=== PATIENT | female | born 1945 | race Caucasian/White ===

== ENCOUNTER 2017-01-17 23:28 | Inpatient (IN) ==
[2017-01-18] MEDS ORDERED: PANTOPRAZOLE INJ 80 MG in SODIUM CHLORIDE 0.9% 100 ML IV STA (01:12)
[2017-01-18] MEDS ORDERED: SODIUM CHLORIDE 0.9% 1,000 ML IV STA (01:12)
[2017-01-18] MEDS ORDERED: ONDANSETRON 4 MG/2 ML VIAL IV STA (01:12)
[2017-01-18] MEDS ORDERED: HYDROmorphone 2 MG/1 ML VIAL IV STA (01:13)
[2017-01-18 01:22] LABS: Basophils # 0.1 10*3/uL (0.0-0.2); Basophils % 0.6 % (0.0-0.8); Eosinophils # 0.1 10*3/uL (0.0-0.87); Eosinophils % 0.9 % (0.00-10.9); Hematocrit 32.6 VOL% (35.7-47.0); Hemoglobin 9.9 GM/DL (12.0-16.0); Immature Granulocytes % 0.4 %; Immature Granulocytes Absolute 0.05 #; Lymphocytes # 2.7 10*3/uL (1.4-4.0); Lymphocytes % 22.8 % (21.3-54.2); Mean Corpuscular HGB Conc 30.4 GM/DL (32-36); Mean Corpuscular Hemoglobin 23 PG (27-34); Mean Corpuscular Volume 75.5 FL (87-102); Mean Platelet Volume 9.3 FL (9.6-12.0); Monocytes # 0.7 10*3/uL (0.11-0.8); Monocytes % 5.8 % (1.7-12.7); Neutrophils # 8.1 10*3/uL (1.4-7.4); Neutrophils % 69.5 % (38.7-73.9); Platelet Count 497 T/CUMM (130-400); Red Blood Count 4.32 MC/CUMM (3.8-5.5); Red Cell Distribution Width 16.4 % (9.3-17.3); White Blood Count 11.6 T/CUMM (4-12)
[2017-01-18] MEDS ORDERED: HYDROmorphone 2 MG/1 ML VIAL ONE (01:25)
[2017-01-18] MEDS ORDERED: PANTOPRAZOLE 40 MG VIAL IV ONE (01:25)
[2017-01-18] MEDS ORDERED: ONDANSETRON 4 MG/2 ML VIAL ONE (01:25)
[2017-01-18 01:27] LABS: PT Patient Result 11.1 SECS; Partial Thromboplastin Time 26.7 SECS (0-40)
[2017-01-18 01:51] LABS: Alanine Aminotransferase 18 U/L (13-56); Alkaline Phosphatase 130 U/L (45-117); Aspartate Amino Transferase 22 U/L (0-37); Calcium 8.7 MG/DL (8.5-10.1)
[2017-01-18 01:52] LABS: Albumin 4.3 G/DL (3.4-5.0); Blood Urea Nitrogen 23 MG/DL (7-18); Glucose 96 MG/DL (74-106); Magnesium 2.6 MG/DL (1.8-2.4); Osmolality,Calculated 282.4 MOS/KG (273-304); Potassium 3.4 MMOL/L (3.5-5.1); Sodium 140 MMOL/L (136-145); Total Protein 6.8 G/DL (6.4-8.3); Troponin I Only < 0.015 NG/ML (0.00-0.045)
[2017-01-18] MEDS ORDERED: PANTOPRAZOLE INJ 200 MG in SODIUM CHLORIDE 0.9% 250 ML IV SCH (05:00)
--- NOTE | 2017-01-18 05:30 | Emergency Department Note ---
I, Carmen Gordon, am scribing for, and in the presence of, Aubree Billingsley DO 00:55. IJose Cruz Catherine, DO, personally performed the services described in this documentation, ascribed by Carmen Gordon in my presence, and it is both accurate and complete . Arrival - Arrival Chief Complaint: GI Bleed/Rectal Stated Complaint: bleeding from rectum with stomach pain ED Nursing Triage Note: PT STATES THAT SHE HAD A BOWEL MOVEMENT TONIGHT AND SHE NOTICED BRIGHT RED BLOOD WHEN SHE WIPED. STATES THAT SHE WAS SEEN FRIDAY BY HER PCP AND HAD BLOOD WORK BUT THAT SHE HAS NOT BEEN TOLD ANYTHING. STATES THAT SHE DID HAVE THIS PROBLEM FRIDAY. PT HAS AN APPOINTMENT IN FEBRUARY WITH DR. HERCULES HOWEVER, PT STATES THAT SHE BELIEVES IT IS TOO BAD TO WAIT UNTIL THEN. STATES THAT SHE IS HAVING LOWER ABD PAIN. Mode of Arrival: Ambulatory Limitations: No Limitations Source: Patient - History of Present Illness HPI Narrative: Pt is a 71 y/o female who came to ED with c/o abdomen pain with excessive blood in stool since 530pm today. Pt was seen by Keren Garcia, not PCP Dr. Fletcher Goodman, on Friday with low blood count, positive heme and was told to follow up with Dr. Hercules on February 12, 2017. Pt takes Plavix and aspirin. Pt had aspirated polyps in colon in 2013, but was told she has a "sick gut" and one day needed to follow up with specialist, per pt. Pt admits to not following up with any provider after due to not having a problem until now. Pt reports having "more blood than poop." Onset (ago): hour(s) Consistency: constant Severity: mild, moderate Severity scale (1-10): 4 Quality: other (running) Date of Last Menstrual Period: HYSTER Allergies/Adverse Reactions: Allergies Allergy/AdvReac Type Severity Reaction Status Date / Time iodine Allergy Severe ANAPHYLAXIS Verified 01/18/17 01:31 Amoxicillin Allergy Nausea Verified 05/24/15 14:59 clarithromycin [From Biaxin] Allergy ITCHING Verified 05/24/15 14:59 codeine Allergy ITCHING Verified 05/24/15 14:59 Home Medications: Home Medications Medication Instructions Recorded Confirmed Type Albuterol Sulfate [Proair HFA] 2 puff INH Q4HR 05/24/15 01/17/17 History Albuterol/Ipratropium Neb [Duoneb] 3 ml RESP TX Q8H 05/24/15 01/17/17 History Allopurinol 300 mg PO DAILY 05/24/15 01/17/17 History Citalopram Hydrobromide [Celexa] 40 mg PO DAILY 05/24/15 01/17/17 History Furosemide Tab [Lasix Tab] 80 mg PO DAILY 05/24/15 01/17/17 History Gabapentin Cap/Tab [Neurontin 300 mg PO BID 05/24/15 01/17/17 History Cap/Tab] Levothyroxine Tab [Synthroid Tab] 100 mcg PO DAILY@0700 05/24/15 01/17/17 History Metoprolol Succinate Xl [Toprol Xl] 100 mg PO DAILY 05/24/15 01/17/17 History Nitroglycerin Sl Tab [Nitrostat] 0.4 mg SL Q5M PRN 05/24/15 01/17/17 History Polyethylene Glycol Powder 17 gm PO DAILY 05/24/15 01/17/17 History [Miralax] Potassium Chloride 40 meq PO AC LUNCH 05/24/15 01/17/17 History Potassium Chloride 40 meq PO DAILY 05/24/15 01/17/17 History Promethazine Tab [Phenergan Tab] 25 mg PO Q6H PRN 05/24/15 01/17/17 History Spironolactone [Aldactone] 25 mg PO BID 05/24/15 01/17/17 History traMADol TAB [Ultram] 50 mg PO TID 05/24/15 01/17/17 History Potassium Chloride 40 meq PO BEDTIME 11/08/15 01/17/17 History Clopidogrel [Plavix] 75 mg PO DAILY 01/17/17 01/17/17 History Fluticasone/Vilanterol [Breo 1 puff INH DAILY 01/17/17 01/17/17 History Ellipta 100-25 Mcg INH] Methocarbamol Tab [Robaxin Tab] 750 mg PO TID PRN 01/17/17 01/17/17 History Omeprazole [Prilosec] 40 mg PO BID 01/17/17 01/17/17 History Review of System - Review of System 12 point system: reviewed and no additional remarkable complaints except as stated - Review of System Constitutional: Absent: chills, fever Respiratory: Absent: respiratory distress Cardiovascular: Absent: chest pain Gastrointestinal: Present: diarrhea (excessive blood in stool). Absent: abdominal pain, nausea, vomiting, constipation, hematemesis Musculoskeletal: Absent: arm pain, back pain, leg pain, neck pain Skin: Absent: rash Neurological: Absent: headache Medical,Surgical,& Family Hx - Medical History Cardio: History of: CAD, Hypertension Neurology: History of: TIA No history of: Seizures Genitourinary: History of: Recurring Urinary Tract Infections Gastrointestinal: History of: Gastrointestinal Bleed Reproductive: History of: Reproductive Problems - Surgical History Cardiac Surgeries: Sugical HX of: Cardiac Surgery (stent) Abdominal Surgeries: Surgical HX of: Cholecystectomy Reproductive Surgeries: Surgical HX of;: Gynecologic Surgery (Prolapsed uterus) , Hysterectomy - Family History Family History: Reports;: Family Cancer, Family Diabetes, Family Heart Disease, Family Hypertension, Family Stroke - Social History Smoking Status: Never smoker Frequency of Alcohol Use: None Type of Drug Use: None Marital Status: Lives With:: Spouse Functional capacity: independent ambulation Exam Vital Signs: Vital Signs Temperature 98.3 F 01/17/17 23:30 Pulse Rate 90 01/17/17 23:30 Respiratory Rate 18 01/17/17 23:30 Blood Pressure 135/83 01/17/17 23:30 O2 Sat by Pulse Oximetry 98 01/17/17 23:30 - General General appearance: alert, in no apparent distress - Head Head exam: Present: atraumatic, normocephalic - Eye Eye exam: Present: PERRL, EOMI - ENT ENT exam: Present: mucous membranes moist. Absent: mucous membranes dry - Neck Neck exam: Present: full ROM. Absent: tenderness - Chest Chest inspection: Present: symmetric chest wall rise. Absent: tenderness - Respiratory Respiratory exam: Present: normal lung sounds bilaterally. Absent: respiratory distress - Cardiovascular Cardiovascular exam: Present: regular rate, normal rhythm, normal heart sounds - Abdominal Exam Abdominal exam: Present: soft, tenderness (diffuse), normal bowel sounds. Absent: distention, guarding, rebound, diminished bowel sounds, hyperactive bowel sounds - Extremities Exam Extremities exam: Present: full ROM. Absent: tenderness, pedal edema - Back Exam Back exam: Present: normal inspection, full ROM - Neurological Exam Neurological exam: Present: alert, oriented X3, CN II-XII intact. Absent: motor sensory deficit - Psychiatric Psychiatric exam: Present: normal affect, normal mood - Skin Skin exam: Present: warm, dry, intact, normal color Course Course Narrative: This is a 71-year-old female coming into the ER today with 2 weeks of bleeding when she has a bowel movement. She has been to her primary doctor she has been referred to see the GI doctors next week. She reports about 3 years ago she had colonoscopy was told she had polyps and a "bad cold". She stated she has not followed up with GI. She she was concerned because over the past 48 hours she feels that her lower abdominal pain has worsened as well as the amount of blood she is having with the stooling. She stated that her regular doctor did rectal exams and has her set up to see GI but she just didn't feel she could wait. She has not been dizzy she's not had a syncopal episode she denies any other complaints. The patient does takes Plavix and aspirin for coronary artery disease. Physical exam vital signs are stable she is not tachycardic or blood pressures normal aging to exam is negative neck is supple heart is regular no murmurs are clear and anterior castillo abdomen is round soft is very diffuse pain in the lower abdominal region without rebound guarding or masses bowel sounds normoactive showing an intact neurologic exam is nonfocal treatment at this time included IV hydration she did receive labwork which is stable I gave her some Protonix as well she received pain medicines and nausea medicines and is resting comfortably. The CT scan of her abdomen is pending at this time. I placed a phone call to the hospitalist and feel that she will need to be observed with her history of bleeding in her anticoagulation status and he is agreeable with this and will be here to see her. - Consultations Consultation #1: Dr. Saavedra Time: 05:29 Results - Labs CBC & BMP: 01/18/17 00:14 01/18/17 00:14 Lab Results: I have reviewed the patients labs Labs: Laboratory Tests 01/18/17 00:14 Hgb 9.9 L Hct 32.6 L MCV 75.5 L MCH 23 L MCHC 30.4 L Plt Count 497 H MPV 9.3 L Neut # (Auto) 8.1 H - Diagnostic Findings Procedure: CT Abdomen and Pelvis: report reviewed by me (pending at this time) Disposition Clinical Impression: GI bleeding Case discussed with: patient Disposition: Still a Patient Condition: Stable Time of Disposition: 05:30
[2017-01-18] MEDS ORDERED: ACETAMINOPHEN 325 MG TABLET PO PRN (06:03)
[2017-01-18] MEDS ORDERED: ACETAMINOPHEN 325 MG TABLET ONE (06:06)
[2017-01-18] MEDS ORDERED: ACETAMINOPHEN 325 MG TABLET PO ONE (06:07)
[2017-01-18] MEDS ORDERED: NITROGLYCERIN SL 0.4 MG TABLET SL PRN (06:12)
[2017-01-18] MEDS ORDERED: METHOCARBAMOL 750 MG TABLET PO PRN (06:12)
--- NOTE | 2017-01-18 06:27 | Hospitalist History & Physical ---
Assessment and Plan (1) GI bleeding Status: Acute Assessment and plan: Patient with hematochezia and lower abdominal pain. Will repeat H&H for follow- up consult GI for evaluation Current Visit: Yes (2) Anemia Status: Acute Assessment and plan: Secondary to GI bleeding will follow hemoglobin hematocrit Current Visit: Yes (3) History of syncope Status: Acute Assessment and plan: Last episode she had about a week ago will consult cardiology Current Visit: Yes (4) Coronary artery disease Status: Chronic Assessment and plan: We will hold Plavix and aspirin for now consult cardiology (Dr. Carrion) Current Visit: Yes History of Present Illness Chief complaint: rectal Bleeding History of present illness: Ms. Mauricio is a 71 year old female with history of hypertension coronary artery disease asthma/COPD. She had a PCI in 2008 and has been on aspirin and Plavix. She has been having passout spell for last 6 months and is scheduled what sounds like the loop recorder device placement. Yesterday afternoon around 5:30 PM she noted to have hematochezia. She noted a stool was mixed with some blood associated with the lower abdominal pain like cramps. About a week ago she had noticed some blood on wipes after the bowel movement. She saw provider in the clinic and noted positive Hemoccult on exam on Friday. She was scheduled to see Dr. Lang February 12. Yesterday afternoon she started having this bowel movement with the blood. After the initial episode she had about 6- 7 episodes of passing bright red blood per rectum. She has history of rectum vagina and bladder repair in 2014 and 2016. She reports since then she has never had normal stool but small stool at the finger size. she reports some nausea with current episode of bleeding without vomiting she has no constipation but take MiraLAX. She underwent evaluation in the ER and wound found to be anemic. She had abdominal CT scan. It was reported to have a thickened colon wall. she also has history of colon polyps. She also reported dysuria for which urine was checked on Friday at clinic but she does not know the results. She reported no fever chest pain shortness of breath at this moment. Home Medications Medication Instructions Recorded Confirmed Type Albuterol Sulfate [Proair HFA] 2 puff INH Q4HR 05/24/15 01/17/17 History Albuterol/Ipratropium Neb [Duoneb] 3 ml RESP TX Q8H 05/24/15 01/17/17 History Allopurinol 300 mg PO DAILY 05/24/15 01/17/17 History Citalopram Hydrobromide [Celexa] 40 mg PO DAILY 05/24/15 01/17/17 History Furosemide Tab [Lasix Tab] 80 mg PO DAILY 05/24/15 01/17/17 History Gabapentin Cap/Tab [Neurontin 300 mg PO BID 05/24/15 01/17/17 History Cap/Tab] Levothyroxine Tab [Synthroid Tab] 100 mcg PO DAILY@0700 05/24/15 01/17/17 History Metoprolol Succinate Xl [Toprol Xl] 100 mg PO DAILY 05/24/15 01/17/17 History Nitroglycerin Sl Tab [Nitrostat] 0.4 mg SL Q5M PRN 05/24/15 01/17/17 History Polyethylene Glycol Powder 17 gm PO DAILY 05/24/15 01/17/17 History [Miralax] Potassium Chloride 40 meq PO AC LUNCH 05/24/15 01/17/17 History Potassium Chloride 40 meq PO DAILY 05/24/15 01/17/17 History Promethazine Tab [Phenergan Tab] 25 mg PO Q6H PRN 05/24/15 01/17/17 History Spironolactone [Aldactone] 25 mg PO BID 05/24/15 01/17/17 History traMADol TAB [Ultram] 50 mg PO TID 05/24/15 01/17/17 History Potassium Chloride 40 meq PO BEDTIME 11/08/15 01/17/17 History Clopidogrel [Plavix] 75 mg PO DAILY 01/17/17 01/17/17 History Fluticasone/Vilanterol [Breo 1 puff INH DAILY 01/17/17 01/17/17 History Ellipta 100-25 Mcg INH] Methocarbamol Tab [Robaxin Tab] 750 mg PO TID PRN 01/17/17 01/17/17 History Omeprazole [Prilosec] 40 mg PO BID 01/17/17 01/17/17 History Allergies Allergy/AdvReac Type Severity Reaction Status Date / Time iodine Allergy Severe ANAPHYLAXIS Verified 01/18/17 01:31 Amoxicillin Allergy Nausea Verified 05/24/15 14:59 clarithromycin [From Biaxin] Allergy ITCHING Verified 05/24/15 14:59 codeine Allergy ITCHING Verified 05/24/15 14:59 Medical,Surgical,& Family Hx - Medical History Cardio: History of: CAD, Hypertension Neurology: History of: TIA No history of: Seizures Respiratory: History of: Asthma Genitourinary: History of: Recurring Urinary Tract Infections Gastrointestinal: History of: Gastrointestinal Bleed Reproductive: History of: Reproductive Problems - Surgical History Abdominal Surgeries: Surgical HX of: Cholecystectomy Reproductive Surgeries: Surgical HX of;: Gynecologic Surgery (Prolapsed uterus) , Hysterectomy - Family History Family History: Reports;: Family Cancer, Family Diabetes, Family Heart Disease, Family Hypertension, Family Stroke - Social History Smoking Status: Never smoker Frequency of Alcohol Use: None Type of Drug Use: None - Constitutional Constitutional: Present: weight loss. Absent: anorexia, chills, fever(s) - Cardiovascular Cardiovascular: Present: other (Episodes of syncope as reported above). Absent : chest pain at rest, dyspnea, edema, orthopnea, palpitations - Respiratory Respiratory: Absent: cough, dyspnea, wheezing - Gastrointestinal Gastrointestinal: Present: as per HPI - Genitourinary Genitourinary: Present: dysuria - Neurological Neurological: Present: syncope. Absent: convulsions, dizziness, tremor(s) - Hematologic/Lymphatic Hematologic/Lymphatic: Absent: easy bruising Exam - Constitutional Vitals: Period Temp Pulse Resp BP Sys/Calderon Pulse Ox Last 24 Hr 98.3 F-98.3 F 90-90 18-18 135-135/83-83 98 General appearance: no acute distress, over weight - Head Head exam: Present: normal inspection, normocephalic, atraumatic - Eye Eye exam: Present: EOMI. Absent: conjunctival injection, scleral icterus Pupils: Present: NAVJOT, normal accommodation - ENT ENT exam: Present: normal oropharynx - Neck Neck exam: Present: other (Supple). Absent: lymphadenopathy - Respiratory Respiratory exam: Present: clear to auscultation bilaterally. Absent: rales, rhonchi - Cardiovascular Cardiovascular exam: Present: regular rate and rhythm. Absent: JVD, tachycardia - GI/Abdominal GI/Abdominal exam: Present: normal bowel sounds, tenderness (Tenderness present in lower abdomen on the right side without any rigidity or rebound), soft. Absent: ascites, distended, rebound - Extremities Exam Extremities exam: Present: normal inspection. Absent: edema - Neurological Exam Neurological exam: Present: alert, oriented X3 Results - Labs CBC & BMP: 01/18/17 00:14 01/18/17 00:14 Lab Results: I have reviewed the past 24 hour labs Quality Measures - VTE Contraindication to Pharmacological VTE Prophylaxis: Active Bleeding
[2017-01-18] MEDS: ALBUTEROL/IPRATROPIUM 3 ML NEB RESP TX SCH ×3 (06:30→23:49)
[2017-01-18] MEDS ORDERED: ONDANSETRON 4 MG/2 ML VIAL IV PRN (06:46)
--- NOTE | 2017-01-18 07:03 | EKG Report ---
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
--- NOTE | 2017-01-18 07:52 | CT Report ---
Referring physician: Aubree Billingsley DO EXAM: CT abdomen and pelvis without contrast DATE: 01/17/2017 COMPARISON: 02/01/2008 REASON: Lower abdominal pain with GI bleeding TECHNIQUE: Axial images of the abdomen and pelvis were obtained without the use of contrast. Coronal and sagittal reformatted images were also provided. Total DLP is 456.40 mGy*cm. This exam was initially interpreted by [facility]. FINDINGS: Coronary artery calcifications/stents with cardiomegaly. Scarring/atelectasis at the lung bases. The liver is normal in size with no masses, dilated ducts with prior cholecystectomy. The spleen, pancreas, and adrenal glands have an unremarkable appearance. Cortical scarring in the kidneys with a 3.8 mm left midpole renal calculus. No definite ureteral calculi are identified. Calcification in the wall of the nondilated abdominal aorta with no adjacent adenopathy. 97 mm hiatal hernia. No significant dilatation of the small bowel. 36 mm fat-containing finding in the ascending colon. Possible thickening of the wall of the distal colon with diverticulosis. 13 mm radiopaque density in the rectal location. No evidence of definite diverticulitis, appendicitis, free air, or free fluid. Prior hysterectomy. Limited evaluation on the pelvis including urinary bladder with streak artifact from the bilateral hip replacement. Possible loosening of the left acetabular cup which appears rotated. Progressive levoscoliosis of the lumbar spine with degenerative changes and associated osseous deformity. IMPRESSION: Possible thickening of the wall of the distal colon which could be related possible colitis, inflammatory bowel disease, artifact etc. Limited evaluation of bowel without oral contrast. Radiopaque densities in the rectal location which may be related to postoperative findings, foreign body, etc. Diverticulosis of the colon with large hiatal hernia. 36 mm lipoma in the ascending colon. Prior cholecystectomy and hysterectomy. Progressive levoscoliosis with an degenerative changes. Status post bilateral hip replacement with possible loosening on the left. 3.8 mm left midpole renal calculus with arterial calcifications and coronary artery stents. The CT exam was performed using one or more of the following dose reduction techniques: Automated exposure control and adjustment of the mA and/or kV according to patient size. PROCEDURE INTERPRETED AT [facility] DEPARTMENT OF RADIOLOGY Final Report Signed by: Dr. Keren Nina
[2017-01-18 08:01] LABS: Basophils # 0.1 10*3/uL (0.0-0.2); Basophils % 0.6 % (0.0-0.8); Eosinophils # 0.2 10*3/uL (0.0-0.87); Eosinophils % 2.2 % (0.00-10.9); Hematocrit 29.3 VOL% (35.7-47.0); Hemoglobin 8.8 GM/DL (12.0-16.0); Immature Granulocytes % 0.3 %; Immature Granulocytes Absolute 0.03 #; Lymphocytes # 3.3 10*3/uL (1.4-4.0); Lymphocytes % 30.2 % (21.3-54.2); Mean Corpuscular Hemoglobin 23 PG (27-34); Mean Corpuscular Volume 75.9 FL (87-102); Mean Platelet Volume 8.8 FL (9.6-12.0); Monocytes # 0.8 10*3/uL (0.11-0.8); Monocytes % 6.9 % (1.7-12.7); Neutrophils # 6.5 10*3/uL (1.4-7.4); Neutrophils % 59.8 % (38.7-73.9); Platelet Count 386 T/CUMM (130-400); Red Blood Count 3.86 MC/CUMM (3.8-5.5); Red Cell Distribution Width 16.5 % (9.3-17.3); White Blood Count 10.9 T/CUMM (4-12)
--- NOTE | 2017-01-18 09:00 | Hospitalist Progress Note ---
Assessment and Plan (1) GI bleeding Status: Acute Assessment and plan: cont protonix IV bid, could be due to diverticular bleed, was on asa and plavix Current Visit: Yes (2) Colitis Status: Acute Assessment and plan: thickening of colon suggestive, defer to Dr. Velez, will start cipro and flagyl Current Visit: Yes (3) Anemia Status: Acute Assessment and plan: monitor serial hgb and transfuse if less than 8 Current Visit: Yes (4) History of syncope Status: Acute Assessment and plan: due to anemia orthostatics Current Visit: Yes (5) Coronary artery disease Status: Chronic Assessment and plan: stents from 2008, no card consult right now Current Visit: Yes (6) Hypokalemia Status: Acute Assessment and plan: replacing and recheck in am Current Visit: Yes Hospitalist: Subjective Interval history: Patient had stents placed in her heart in 2008. We have had to take her off her aspirin and Plavix due to rectal bleeding. She has been anemic in the past but her for this is her first episode of rectal bleeding. Dr. Velez we will see her today. I am feeding her full liquids today. She is only seeing bleeding when she wipes. We will continue to monitor hemoglobins closely. Exam - Constitutional Vitals: Period Temp Pulse Resp BP Sys/Calderon Pulse Ox Last 24 Hr 97.3 F-97.3 F 84-85 14-20 115-118/58-64 97-100 Exam: Heart Rate-[RRR] Lungs-[CTAB] GI-[+bs soft, NT] Ext-[no edema] Neuro [Motor 5/5], [alert and oriented times 3] psych [normal mood and affect] General [no acute distress] Results - Labs CBC & BMP: 01/18/17 07:45 01/18/17 00:14 Lab Results: I have reviewed the past 24 hour labs - Diagnostic Findings Procedure: CT Abdomen and Pelvis: report reviewed by me (Diverticulosis and thickening of the colon suggestive of colitis.) Quality Measures - VTE Contraindication to Pharmacological VTE Prophylaxis: Active Bleeding
[2017-01-18] MEDS ORDERED: SODIUM CHLORIDE 0.9% 250 ML IV PRN (09:06)
--- NOTE | 2017-01-18 09:09 | Gastrointestinal Consult Note ---
Assessment and Plan - Time spent with patient Time spent with patient: Greater than 30 minutes (1) Hematochezia Status: Acute Current Visit: Yes (2) Other specified counseling Status: Acute Current Visit: Yes History of Present Illness History of present illness: Ms. Mauricio is a 71 year old female Home Medications Medication Instructions Recorded Confirmed Type Albuterol Sulfate [Proair HFA] 2 puff INH Q4HR 05/24/15 01/17/17 History Albuterol/Ipratropium Neb [Duoneb] 3 ml RESP TX Q8H 05/24/15 01/17/17 History Allopurinol 300 mg PO DAILY 05/24/15 01/17/17 History Citalopram Hydrobromide [Celexa] 40 mg PO DAILY 05/24/15 01/17/17 History Furosemide Tab [Lasix Tab] 80 mg PO DAILY 05/24/15 01/17/17 History Gabapentin Cap/Tab [Neurontin 300 mg PO BID 05/24/15 01/17/17 History Cap/Tab] Levothyroxine Tab [Synthroid Tab] 100 mcg PO DAILY@0700 05/24/15 01/17/17 History Metoprolol Succinate Xl [Toprol Xl] 100 mg PO DAILY 05/24/15 01/17/17 History Nitroglycerin Sl Tab [Nitrostat] 0.4 mg SL Q5M PRN 05/24/15 01/17/17 History Polyethylene Glycol Powder 17 gm PO DAILY 05/24/15 01/17/17 History [Miralax] Potassium Chloride 40 meq PO AC LUNCH 05/24/15 01/17/17 History Potassium Chloride 40 meq PO DAILY 05/24/15 01/17/17 History Promethazine Tab [Phenergan Tab] 25 mg PO Q6H PRN 05/24/15 01/17/17 History Spironolactone [Aldactone] 25 mg PO BID 05/24/15 01/17/17 History traMADol TAB [Ultram] 50 mg PO TID 05/24/15 01/17/17 History Potassium Chloride 40 meq PO BEDTIME 11/08/15 01/17/17 History Clopidogrel [Plavix] 75 mg PO DAILY 01/17/17 01/17/17 History Fluticasone/Vilanterol [Breo 1 puff INH DAILY 01/17/17 01/17/17 History Ellipta 100-25 Mcg INH] Methocarbamol Tab [Robaxin Tab] 750 mg PO TID PRN 01/17/17 01/17/17 History Omeprazole [Prilosec] 40 mg PO BID 01/17/17 01/17/17 History Allergies Allergy/AdvReac Type Severity Reaction Status Date / Time iodine Allergy Severe ANAPHYLAXIS Verified 01/18/17 01:31 Amoxicillin Allergy Nausea Verified 05/24/15 14:59 clarithromycin [From Biaxin] Allergy ITCHING Verified 05/24/15 14:59 codeine Allergy ITCHING Verified 05/24/15 14:59 Medical,Surgical,& Family Hx - Medical History Cardio: History of: CAD, Hypertension Psychological: History of: Depression (Since .) Neurology: History of: TIA No history of: Seizures HEENT: History of: Eye Problem (Cataracts) No history of: Dental Problems Endocrine: History of: Endocrine Problems (Patient states she takes Thyroid medication daily.) No history of: Diabetes Mellitus (IDDM), Diabetes Mellitus (NIDDM) Rheumatology: History of;: Gout Respiratory: History of: Asthma Genitourinary: History of: Recurring Urinary Tract Infections Gastrointestinal: History of: Gastrointestinal Bleed Musculoskeletal: History of: Back/Neck Problems No history of: Amputation Hematology: History of: Bleeding Problems (Rectal Bleeding) Reproductive: History of: Reproductive Problems Other: 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) - Surgical History Cardiac Surgeries: Sugical HX of: Cardiac Surgery (stent) Thoracic Surgeries: Patient denies;: Organ Transplant HEENT Surgeries: Patient denies: Eye Surgery, Thyroid Surgery, Tonsilectomy & Adenoidectomy Abdominal Surgeries: Surgical HX of: Cholecystectomy Reproductive Surgeries: Surgical HX of;: Gynecologic Surgery (Prolapsed uterus) , Hysterectomy Orthopedic Surgeries: Surgical HX of;: Total Hip Replacement Patient denies;: Total Knee Replacement - Family History Family History: Reports;: Family Cancer, Family Diabetes, Family Heart Disease, Family Hypertension, Family Stroke - Social History Smoking Status: Never smoker Frequency of Alcohol Use: None Type of Drug Use: None Exam - Constitutional Vitals: Period Temp Pulse Resp BP Sys/Calderon Pulse Ox Last 24 Hr 97.3 F-97.3 F 84-85 14-20 115-118/58-64 97-100 Results - Labs CBC & BMP: 01/18/17 07:45 01/18/17 00:14 Quality Measures - VTE Contraindication to Pharmacological VTE Prophylaxis: Active Bleeding Note Addendum: PLEASE NOTE -- automatic citation of patient information is unavoidable in this electronic note. I have made a reasonable effort to review the information cited , but it is not a part of my evaluation, impression, or recommendation unless specifically discussed in the dictated text that follows. As well, voice recognition software was used in the creation of this clinical note. Reasonable effort was made to identify and correct gross errors. Despite proofreading, errors in dermatology nurse may be present, including nonsense verbiage at times. If you encounter such an error, please contact me at for discussion and correction. -- Rosie Chief complaint: hematochezia History of present illness: this is a new patient, a 71-year-old female seen by consultation for evaluation of rectal bleeding. The patient is admitted to the hospitalist service under the care of Dr. Duran with a primary diagnosis of gastrointestinal bleeding. The patient was admitted through the emergency department yesterday with a primary complaint of hematochezia, 4-5 episodes, in the setting of right lower quadrant abdominal cramping. She notes that she has been having syncopal episodes over the past six months or so as well, and is currently undergoing outpatient cardiovascular evaluation in that regard. She has a history of coronary artery disease as well as peripheral vascular disease. Evaluation in the emergency department revealed hemoglobin of less than 10 g/dL and this has dropped by 1 g/dL with crystalloid resuscitation overnight. Abdominal discomfort has improved but not resolved. She has not had a bowel movement today. Patient last had colonoscopy in [address] Winters and had polyps removed. Patient denies fever, chills, night sweats, rigors, headache, neck pain, visual changes, redness of the eyes, dysphagia, odynophagia, difficulty chewing, chest pain, shortness of breath, weight loss, regurgitation, hematemesis, diarrhea, melena, proctalgia, constipation, dysuria, skin changes, temperature regulation issues, flushing, easy bleeding/bruising, musculoskeletal pain, mental status change, numbness/weakness in the extremities, yellowing of the eyes/skin, cutaneous eruptions, family history of gastrointestinal cancer and colon polyps , and other complaints in general. Review of systems: 12 point review of systems was negative except as documented above. Outpatient medications: albuterol, Duoneb, allopurinol, Celexa, Lasix, Neurontin , Synthroid, Toprol, nitrous Stat, MiraLAX, potassium chloride, Phenergen, Aldactone, ultram, Plavix, Robaxin, omeprazole Inpatient medications: Tylenol, albuterol, Duoneb, allopurinol, Celexa, Neurontin, Synthroid, Robaxin, Toprol, nitroglycerin, Zofran, Protonix, ultram Past Medical History: coronary artery disease, hypertension, transient ischemic attack, asthma, recurrent urinary tract infection, gastrointestinal bleeding Social history: negative tobacco. Negative alcohol Family history: daughter with colorectal cancer at 37 years of age; sister with unknown abdominal cancer at greater than 60 years of age Physical examination: Vital Signs: Current vital signs reviewed and documented above. General Appearance: lying in bed. Comfortable. Accompanied by her family members. No apparent distress. Head: Normocephalic. Neck: Palpation of the neck revealed no abnormalities. Eyes: No scleral icterus. No scleral injection. No conjunctival pallor. Oral Cavity: Odor of breath was normal. No drooling was observed. Lips showed no abnormalities. Floor of the mouth showed no abnormalities. Pharynx: Oropharynx was normal. Lungs: Respiration rhythm and depth was normal. Cardiovascular: Heart rate and rhythm were normal. No murmurs were appreciated. Abdomen: abdomen was not distended. Abdominal palpation revealed no tenderness and no hepatosplenomegaly. Ascites was not discovered. Abdominal auscultation revealed positive bowel sounds. Musculoskeletal System: Musculoskeletal system was grossly normal. Neurological: level of consciousness was normal. Speech was normal. Skin: General appearance was normal. Color and pigmentation were normal. No skin lesions. Laboratory: hemoglobin 8.8, hematocrit 29.3, platelets 386, INR 1.0, ALT 18, AST 22, total bilirubin 0.5, alkaline phosphatase 130 Radiology: CT of the abdomen and pelvis, January 18, 2017 -- thickening in the sigmoid colon and rectum, diverticulosis Impressions: 1. Hematochezia -- the differential diagnosis includes ischemic colitis, infectious/inflammatory enterocolitis, arteriovenous malformation, diverticular bleeding, hemorrhoidal bleeding, colon polyps (including cancer), and upper gastrointestinal bleeding. I recommend aggressive volume management with consideration of permissive hypertension over the next couple of days. I recommend serial hemoglobin and hematocrit monitoring with transfusion as indicated. I recommend intravenous proton pump inhibitor. Patient will need colonoscopy with timing dependent on clinical progress. If bleeding continues, this will likely need to be done during this admission. If not, we could consider outpatient colonoscopy once she is adequately resuscitated and transfused. 2. Other specified counseling: The patient was seen for greater than 30 minutes. The patient was counseled for greater than 50% of this time regarding differential diagnosis, likely diagnosis, diagnostic and therapeutic alternatives, risks/benefits/alternatives of medications and procedures, and plan of care generally. The patient expressed understanding and wishes to proceed. Recommendations: -- aggressive volume management -- transfusion as indicated -- serial hemoglobin and hematocrit monitoring -- proton pump inhibitor -- consider permissive hypertension -- colonoscopy with timing dependent on clinical progress, likely during convalescence -- thank you for consultation. We will continue to follow with you.
[2017-01-18] MEDS: CITALOPRAM 40 MG TABLET PO SCH (10:40)
[2017-01-18] MEDS: ALLOPURINOL 300 MG TABLET PO SCH (10:40)
[2017-01-18] MEDS: LEVOTHYROXINE 100 MCG TABLET PO SCH (10:40)
[2017-01-18] MEDS: traMADol 50 MG TABLET PO SCH ×3 (10:41→20:23)
[2017-01-18] MEDS: GABAPENTIN 300 MG CAPSULE PO SCH ×2 (10:41→20:23)
[2017-01-18] MEDS: METOPROLOL SUCCINATE XL 100 MG TABLET PO SCH (10:42)
[2017-01-18] MEDS: DEXT 5% NACL 0.45% KCL 40 MEQ 40 MEQ/1,000 ML BAG IV SCH ×2 (10:45→23:55)
[2017-01-18] MEDS ORDERED: ALBUTEROL 2.5 MG/3 ML NEB RESP TX SCH (11:00)
[2017-01-18] MEDS: PANTOPRAZOLE 40 MG VIAL IV SCH ×2 (11:15→21:39)
[2017-01-18] MEDS: metroNIDAZOLE INJ 500 MG in PREMIX 1 EACH IV SCH ×3 (11:16→23:39)
[2017-01-18] MEDS: CIPROFLOXACIN INJ 400 MG in PREMIX 1 EACH IV SCH ×2 (12:18→23:45)
[2017-01-18] MEDS ORDERED: ALBUTEROL 2.5 MG/3 ML NEB RESP TX PRN (12:32)
[2017-01-18 16:17] LABS: Apearance,Urine CLOUDY (Clear); Bilirubin,Urine Negative (Negative); Blood, Urine Small mg/dL (Negative); Glucose,Urine (UA) Negative (Negative); Ketones,Urine Negative (Negative); Mucus,Urine Occasional /LPF (Occasional); Nitrite,Urine Negative (Negative); Protein,Urine Negative; Squamous Epithelial Cell,Urine Occasional /HPF (0-10); Urine Color Yellow (Yellow); Urine Specific Gravity 1.014 (1.001-1.035); Urine Urobilinogen < 2.0 EU/DL (0.2-1.0); WBC,Urine 1052 /HPF (0-6)
[2017-01-18 19:17] LABS: Hematocrit 33.8 VOL% (35.7-47.0); Hemoglobin 10.2 GM/DL (12.0-16.0)
[2017-01-19] MEDS: metroNIDAZOLE INJ 500 MG in PREMIX 1 EACH IV SCH ×2 (05:22→10:21)
[2017-01-19] MEDS: LEVOTHYROXINE 100 MCG TABLET PO SCH (06:26)
--- NOTE | 2017-01-19 06:35 | Gastrointestinal Progress Note ---
Assessment and Plan (1) Hematochezia Status: Acute Current Visit: Yes (2) Other specified counseling Status: Acute Current Visit: Yes Exam (Progress Note) - Constitutional Vitals: Period Temp Pulse Resp BP Sys/Calderon Pulse Ox Last 24 Hr 97.3 F-98.4 F 64-91 14-22 100-118/54-65 94-100 Results - Labs CBC & BMP: 01/19/17 06:25 01/18/17 00:14 Note Addendum: PLEASE NOTE -- automatic citation of patient information is unavoidable in this electronic note. I have made a reasonable effort to review the information cited , but it is not a part of my evaluation, impression, or recommendation unless specifically discussed in the dictated text that follows. As well, voice recognition software was used in the creation of this clinical note. Reasonable effort was made to identify and correct gross errors. Despite proofreading, errors in forestry instructor may be present, including nonsense verbiage at times. If you encounter such an error, please contact me at [phone] for discussion and correction. -- Rosie Chief complaint: hematochezia Subjective: This is a 71-year-old female seen for follow-up of suspected gastrointestinal bleeding. The patient's blood counts have remained stable overnight. Her abdominal pain has improved. She is without other complaints this morning. Review of systems: 12 point review of systems was negative except as documented above. Inpatient medications: Tylenol, albuterol, Duoneb, allopurinol, Celexa, Neurontin, Synthroid, Robaxin, Toprol, nitroglycerin, Zofran, Protonix, ultram Physical examination: Vital Signs: Current vital signs reviewed and documented above. General Appearance: lying in bed. Comfortable. Accompanied by her family members. No apparent distress. Head: Normocephalic. Neck: Palpation of the neck revealed no abnormalities. Eyes: No scleral icterus. No scleral injection. No conjunctival pallor. Oral Cavity: Odor of breath was normal. No drooling was observed. Lips showed no abnormalities. Floor of the mouth showed no abnormalities. Pharynx: Oropharynx was normal. Lungs: Respiration rhythm and depth was normal. Cardiovascular: Heart rate and rhythm were normal. No murmurs were appreciated. Abdomen: abdomen was not distended. Abdominal palpation revealed no tenderness and no hepatosplenomegaly. Ascites was not discovered. Abdominal auscultation revealed positive bowel sounds. Musculoskeletal System: Musculoskeletal system was grossly normal. Neurological: level of consciousness was normal. Speech was normal. Skin: General appearance was normal. Color and pigmentation were normal. No skin lesions. Laboratory: Hemoglobin 9.6 Radiology: CT of the abdomen and pelvis, January 18, 2017 -- thickening in the sigmoid colon and rectum, diverticulosis Impressions: 1. Hematochezia -- the patient has not experienced further bleeding. Patient will need colonoscopy with timing dependent on clinical progress, likely during convalescence. I recommend continued monitoring for now. 2. Other specified counseling: The patient was seen for less than 30 minutes. The patient was counseled for greater than 50% of this time regarding differential diagnosis, likely diagnosis, diagnostic and therapeutic alternatives, risks/benefits/alternatives of medications and procedures, and plan of care generally. The patient expressed understanding and wishes to proceed. Recommendations: -- aggressive volume management -- transfusion as indicated -- serial hemoglobin and hematocrit monitoring -- proton pump inhibitor -- colonoscopy with timing dependent on clinical progress, likely during convalescence -- thank you for consultation. Dr. Walden will assume GI care for this patient tomorrow.
[2017-01-19] MEDS: ALBUTEROL/IPRATROPIUM 3 ML NEB RESP TX SCH ×2 (07:05→16:07)
[2017-01-19 07:30] LABS: Basophils # 0.1 10*3/uL (0.0-0.2); Basophils % 1.1 % (0.0-0.8); Eosinophils # 0.3 10*3/uL (0.0-0.87); Eosinophils % 4.8 % (0.00-10.9); Hematocrit 33.2 VOL% (35.7-47.0); Hemoglobin 9.9 GM/DL (12.0-16.0); Immature Granulocytes % 0.3 %; Immature Granulocytes Absolute 0.02 #; Lymphocytes # 2.2 10*3/uL (1.4-4.0); Lymphocytes % 31.5 % (21.3-54.2); Mean Corpuscular HGB Conc 29.8 GM/DL (32-36); Mean Corpuscular Hemoglobin 24 PG (27-34); Mean Platelet Volume 9.1 FL (9.6-12.0); Monocytes # 0.6 10*3/uL (0.11-0.8); Monocytes % 8.5 % (1.7-12.7); Neutrophils # 3.8 10*3/uL (1.4-7.4); Neutrophils % 53.8 % (38.7-73.9); Platelet Count 334 T/CUMM (130-400); Red Blood Count 4.15 MC/CUMM (3.8-5.5); Red Cell Distribution Width 16.6 % (9.3-17.3); White Blood Count 7.1 T/CUMM (4-12)
[2017-01-19 08:06] LABS: Calcium 8.3 MG/DL (8.5-10.1); Potassium 4.4 MMOL/L (3.5-5.1)
[2017-01-19] MEDS: PANTOPRAZOLE 40 MG VIAL IV SCH ×2 (10:21→21:55)
[2017-01-19] MEDS: GABAPENTIN 300 MG CAPSULE PO SCH ×2 (10:22→20:34)
[2017-01-19] MEDS: METOPROLOL SUCCINATE XL 100 MG TABLET PO SCH (10:22)
[2017-01-19] MEDS: traMADol 50 MG TABLET PO SCH ×3 (10:23→20:34)
[2017-01-19] MEDS: ALLOPURINOL 300 MG TABLET PO SCH (10:24)
[2017-01-19] MEDS: CITALOPRAM 40 MG TABLET PO SCH (10:25)
[2017-01-19] MEDS ORDERED: MORPHINE 2 MG/1 ML SYRINGE IV PRN (10:27)
--- NOTE | 2017-01-19 10:29 | Hospitalist Progress Note ---
Assessment and Plan (1) GI bleeding Status: Acute Assessment and plan: cont protonix IV bid, could be due to diverticular bleed, was on asa and plavix Current Visit: Yes (2) Colitis Status: Acute Assessment and plan: cont cipro and flagyl Current Visit: Yes (3) Anemia Status: Acute Assessment and plan: hgb stable Current Visit: Yes (4) History of syncope Status: Acute Assessment and plan: orthostasis resolved Current Visit: Yes (5) Coronary artery disease Status: Chronic Assessment and plan: stents from 2008, cont to hold asa and plavix Current Visit: Yes (6) Hypokalemia Status: Acute Assessment and plan: resolved Current Visit: Yes (7) UTI (urinary tract infection) Status: Acute Assessment and plan: looks like enterococcus but she is allergic to pcn, Vancomycin Current Visit: Yes Hospitalist: Subjective Interval history: Patient woke up this morning with severe right lower quadrant abdominal pain. This resolved but she only has tramadol ordered. I told her would order some as needed morphine and Gratz. Patient's hemoglobin is stable today. She has not noticed any more bleeding from her stools. She slept well last night. She would like more to eat so we will advance her to a GI soft diet. Exam - Constitutional Vitals: Period Temp Pulse Resp BP Sys/Calderon Pulse Ox Last 24 Hr 97.4 F-98.4 F 64-91 16-22 100-113/54-65 94-100 Exam: Heart Rate-[RRR] Lungs-[CTAB] GI-[+bs soft, tender in RLQ] Ext-[no edema] Neuro [Motor 5/5], [alert and oriented times 3] psych [normal mood and affect] General [no acute distress] Results - Labs CBC & BMP: 01/19/17 06:25 01/19/17 06:25 Lab Results: I have reviewed the past 24 hour labs Labs: Urine culture growing gram-positive cocci, blood cultures negative growth 2 Quality Measures - VTE Contraindication to Pharmacological VTE Prophylaxis: Active Bleeding
[2017-01-19] MEDS: CIPROFLOXACIN INJ 400 MG in PREMIX 1 EACH IV SCH (12:06)
[2017-01-19] MEDS: VANCOMYCIN INJ 750 MG in SODIUM CHLORIDE 0.9% 250 ML IV SCH (14:32)
[2017-01-20] MEDS: ALBUTEROL/IPRATROPIUM 3 ML NEB RESP TX SCH ×3 (00:47→14:53)
[2017-01-20] MEDS: VANCOMYCIN INJ 750 MG in SODIUM CHLORIDE 0.9% 250 ML IV SCH (01:22)
[2017-01-20] MEDS: LEVOTHYROXINE 100 MCG TABLET PO SCH (06:12)
[2017-01-20 07:05] LABS: Basophils # 0.1 10*3/uL (0.0-0.2); Basophils % 0.8 % (0.0-0.8); Eosinophils # 0.5 10*3/uL (0.0-0.87); Eosinophils % 5.4 % (0.00-10.9); Hematocrit 33.2 VOL% (35.7-47.0); Hemoglobin 10.2 GM/DL (12.0-16.0); Immature Granulocytes % 0.4 %; Immature Granulocytes Absolute 0.04 #; Lymphocytes # 2.5 10*3/uL (1.4-4.0); Lymphocytes % 26.4 % (21.3-54.2); Mean Corpuscular HGB Conc 30.7 GM/DL (32-36); Mean Corpuscular Hemoglobin 24 PG (27-34); Mean Corpuscular Volume 77.4 FL (87-102); Mean Platelet Volume 9.1 FL (9.6-12.0); Monocytes # 0.6 10*3/uL (0.11-0.8); Monocytes % 6.5 % (1.7-12.7); Neutrophils # 5.8 10*3/uL (1.4-7.4); Neutrophils % 60.5 % (38.7-73.9); Platelet Count 356 T/CUMM (130-400); Red Blood Count 4.29 MC/CUMM (3.8-5.5); Red Cell Distribution Width 17.2 % (9.3-17.3); White Blood Count 9.6 T/CUMM (4-12)
[2017-01-20] MEDS: CITALOPRAM 40 MG TABLET PO SCH (08:19)
[2017-01-20] MEDS: GABAPENTIN 300 MG CAPSULE PO SCH ×2 (08:19→21:18)
[2017-01-20] MEDS: traMADol 50 MG TABLET PO SCH ×3 (08:20→21:19)
[2017-01-20] MEDS: METOPROLOL SUCCINATE XL 100 MG TABLET PO SCH (08:20)
[2017-01-20] MEDS: ALLOPURINOL 300 MG TABLET PO SCH (08:21)
[2017-01-20] MEDS: PANTOPRAZOLE 40 MG VIAL IV SCH ×2 (08:21→21:18)
--- NOTE | 2017-01-20 09:24 | Hospitalist Progress Note ---
Assessment and Plan (1) Colitis Status: Acute Assessment and plan: 1)colitis- GI suspects ischemic colitis. She has bnever had anything like this before. She was dehydrated on admission. Now having "old blood" passed with gas. No BM since admission- she requires Miralax for BM since her rectal surgeries. Dr Hercules to see. 2)anemia- stable after 2 Units transfused on admission. 3)history of syncope- happening over last 6 months with outpatient cards work up. no dizziness when she gets up. Her anemia was symptomatic on admission. 4)GPC UTI- on vanc, await culture results. get results from clinic also. 5) HTN- SBP around 100-110. decrease metoprolol. hold off on resuming diuretics for now. Current Visit: Yes (2) Hematochezia Status: Acute Current Visit: Yes (3) Anemia Status: Acute Current Visit: Yes (4) History of syncope Status: Acute Current Visit: Yes (5) Coronary artery disease Status: Chronic Current Visit: Yes (6) UTI (urinary tract infection) Status: Acute Current Visit: Yes Hospitalist: Subjective Interval history: Mrs Mauricio is doing well this morning. she has eaten her entire regular breakfast tray and would eat more if it were available. She denies dizziness or pain. No shortness of breath. She has been up to the BR without problem. She denies blood with stool since Friday, but then says that last night she passed a small amount of old blood with gas. Dr Velez diagnosed ischemic colitis and recommended that the antibiotics be stopped which Dr Duran did yesterday. Dr Hercules to assess today and determine timing of colonscopy. Her asa and plavix have been held since admission. She had temp to 100.3 last night. She is on vanc for GPC in her urine. A week ago she had blood work and UCx at her clinic and she does not have results from that. She had occult positive stool at that time also. Exam - Constitutional Vitals: Period Temp Pulse Resp BP Sys/Calderon Pulse Ox Last 24 Hr 97.7 F-100.3 F 68-87 18-22 106-118/53-65 92-100 General appearance: normal weight, no acute distress - Head Head exam: Present: normocephalic, atraumatic - Eye Eye exam: Present: EOMI. Absent: scleral icterus - Respiratory Respiratory exam: Present: clear to auscultation bilaterally - Cardiovascular Cardiovascular exam: Present: regular rate and rhythm - GI/Abdominal GI/Abdominal exam: Present: normal bowel sounds, soft. Absent: tenderness - Extremities Exam Extremities exam: Absent: edema - Neurological Exam Neurological exam: Present: alert, oriented X3 Results - Labs CBC & BMP: 01/20/17 06:41 01/19/17 06:25 Lab Results: I have reviewed the past 24 hour labs Quality Measures - VTE Contraindication to Pharmacological VTE Prophylaxis: Active Bleeding
--- NOTE | 2017-01-20 10:41 | Gastrointestinal Progress Note ---
<Roya Chang - Last Filed: 01/20/17 10:37> Assessment and Plan (1) Hematochezia Status: Acute Assessment and plan: 01/20-no further bleeding since admission. Hemoglobin holding at 10 following 2 units of packed red blood cells over the weekend. Plavix held since Friday. Tolerating diet. Plan an addendum to follow by Dr. Chou. Current Visit: Yes Gastroenterology - PN: Subj Interval history: CC: Hematochezia Patient is seen awake and alert sitting up in bed. She was admitted 2 days ago with onset of bright red bleeding and right lower quadrant abdominal pain. Patient had several episodes of rectal bleeding with stool prior to admission. She states that she has not had a bowel movement since Friday and has not had any further rectal bleeding except a small amount of dark spotting on the tissue paper with flatus. Patient states that her bowels have not moved in 2 days and she is concerned due to told after having her reconstructive surgery for rectal and uterine prolapse in 2016 to not miss a day of taking her MiraLAX. Patient states she had the initial repair done in 2014 and had to go back and have a revision done in 2016 due to further prolapse. Patient states that she has not had any abdominal pain at this time. She was noted to have a temp of 101.3 earlier this morning and noted to have enterococcus faecalis in her urine. WBCs 9.6. She did require 2 units of packed red blood cells since admission with hemoglobin holding at 10.2. Her CT scan on admission noted to show thickening of the distal colon. She was taking Plavix and aspirin for cardiac stents which were placed in 2008 however this is been held since Friday. Her last colonoscopy is noted to be in [address] Winters with polyps removed. Abdomen is soft, nontender. ROS: Denies shortness of breath or chest pain Exam (Progress Note) - Constitutional Vitals: Period Temp Pulse Resp BP Sys/Calderon Pulse Ox Last 24 Hr 97.7 F-100.3 F 68-87 18-22 106-129/53-65 92-100 General appearance: normal weight, no acute distress - Head Head exam: Present: normal inspection, normocephalic - Eye Eye exam: Present: other (lids and conjunctiva unremarkable). Absent: scleral icterus - ENT ENT exam: Present: normal exam, normal oropharynx - Neck Neck exam: Present: normal inspection - Respiratory Respiratory exam: Present: clear to auscultation bilaterally. Absent: rales, rhonchi, wheezes - Cardiovascular Cardiovascular exam: Present: regular rate and rhythm. Absent: diastolic murmur , JVD, systolic murmur - GI/Abdominal GI/Abdominal exam: Present: normal bowel sounds, soft. Absent: ascites, distended, mass, organomegaly, tenderness - Extremities Exam Extremities exam: Present: normal inspection, full ROM - Back Exam Back exam: Present: normal inspection - Neurological Exam Neurological exam: Present: alert, oriented X3 - Psychiatric Psychiatric exam: Present: normal affect, normal mood - Skin Skin exam: Present: normal color, warm, dry Results - Labs CBC & BMP: 01/20/17 06:41 01/19/17 06:25 Lab Results: I have reviewed the past 24 hour labs - Diagnostic Findings Procedure: CT Abdomen and Pelvis: report reviewed by me <Lorenzo Chou - Last Filed: 01/20/17 12:55> Exam (Progress Note) - Constitutional Vitals: Period Temp Pulse Resp BP Sys/Calderon Pulse Ox Last 24 Hr 97.7 F-100.3 F 68-87 18-22 106-129/53-62 92-100 Results - Labs CBC & BMP: 01/20/17 06:41 01/19/17 06:25
--- NOTE | 2017-01-20 11:20 | Physician Query Form ---
CLICK EDIT DOCUMENT TO SELECT QUERY ANSWER --> OK --> SIGN Judy Garcia RN Clinical Motion Study Engineer W) [phone] (f) [phone] [email or web address]: Make your selection(s) from the choices in EACH section by typing an "x" and enter comments in the comment section. Please use your independent medical judgment in providing your response. This request does not imply that any particular answer is desired or expected. CLINICAL INDICATORS: (Providers should not edit this section) Based on documentation of "Acute GI bleeding" "Acute hematochezia" "Acute anemia " Transfused 2 units PRBC. Based on the above, could you clarify which of the following conditions you are evaluating, treating, and/or monitoring? ( x) Blood loss anemia ( ) acute ( ) chronic ( ) acute on chronic ( ) Acute blood loss anemia on baseline chronic anemia ( ) Acute blood loss anemia as a complication of a procedure ( ) Iron deficiency anemia not associated with blood loss ( ) Anemia due to other condition, please specify: ( ) Clinically unable to determine COMMENTS: Use of terms such as suspected, likely, or probable (associated with a specific diagnosis that is being evaluated, monitored, or treated as if it exists) are acceptable and can be restated in the discharge summary if not ruled out. MTDD
[2017-01-20] MEDS: CIPROFLOXACIN 500 MG TABLET PO SCH ×2 (14:02→21:18)
[2017-01-20] MEDS: SPIRONOLACTONE 25 MG TABLET PO SCH (21:18)
[2017-01-21] MEDS: ALBUTEROL/IPRATROPIUM 3 ML NEB RESP TX SCH ×4 (01:20→23:59)
[2017-01-21 05:32] LABS: Basophils # 0.1 10*3/uL (0.0-0.2); Basophils % 0.8 % (0.0-0.8); Eosinophils # 0.6 10*3/uL (0.0-0.87); Eosinophils % 6.1 % (0.00-10.9); Hematocrit 35.4 VOL% (35.7-47.0); Hemoglobin 10.5 GM/DL (12.0-16.0); Immature Granulocytes % 0.3 %; Immature Granulocytes Absolute 0.03 #; Lymphocytes # 3.2 10*3/uL (1.4-4.0); Lymphocytes % 31.2 % (21.3-54.2); Mean Corpuscular HGB Conc 29.7 GM/DL (32-36); Mean Corpuscular Hemoglobin 24 PG (27-34); Mean Corpuscular Volume 80.1 FL (87-102); Mean Platelet Volume 8.9 FL (9.6-12.0); Monocytes # 0.7 10*3/uL (0.11-0.8); Monocytes % 6.7 % (1.7-12.7); Neutrophils # 5.6 10*3/uL (1.4-7.4); Neutrophils % 54.9 % (38.7-73.9); Platelet Count 365 T/CUMM (130-400); Red Blood Count 4.42 MC/CUMM (3.8-5.5); Red Cell Distribution Width 17.2 % (9.3-17.3); White Blood Count 10.1 T/CUMM (4-12)
[2017-01-21] MEDS: LEVOTHYROXINE 100 MCG TABLET PO SCH ×2 (06:05→13:02)
[2017-01-21] MEDS ORDERED: LIDOCAINE 1% 5 ML VIAL ONE (10:40)
[2017-01-21] MEDS ORDERED: PROPOFOL 200 MG/20 ML VIAL IV ONE (10:40)
--- NOTE | 2017-01-21 10:43 | History and Physical Update ---
History and Physical Update - Physical Exam Mental Status: alert and oriented Heart: regular rate and rhythm Lung: clear to auscultation Abdomen: within normal limits Vitals: within normal limits
--- NOTE | 2017-01-21 10:49 | Operative Note ---
Date of procedure: 01/21/17 Pre-op diagnosis: Acute GI blood loss Procedure: EGD 71-year-old female with acute GI blood loss complicated by chronic anticoagulation now for upper endoscopy to further evaluate. Her Plavix is only been held for 48 hours and this is a diagnostic study only. Informed symptoms obtained the patient She was sedated with MAC anesthesia per anesthesia protocol. Patient placed left lateral cutis position the Olympus flexible video upper endoscope was inserted lower cavity under direct vision the esophagus intubated. Findings: Esophagus-normal proximal mid esophageal mucosa distal esophagus with large hiatal hernia there is an inflammatory polyp present in the hiatal hernia measuring approximately 8 mm. This was not removed or biopsied. Stomach-normal insufflation normal mucosa to direct retroflexed views of the body, fundus, cardia and antrum the stomach. Pylorus-normal Duodenum-normal bulb duodenum to the third portion of duodenum. The procedure terminated placed our procedure well discharge recovery in good condition. Postop diagnosis: 1. Large hiatal hernia-continue PPI treatment antireflux precautions 2. Esophageal polyp likely inflammatory consider repeat endoscopy for removal after Plavix has been held for 5 days. 3. Plan colonoscopy on . Anesthesia: MAC Surgeon / Physician: Lorenzo Chou Estimated blood loss: none Specimens: none sent Condition: stable Disposition: post procedure unit Results - Labs CBC & BMP: 01/21/17 04:46 01/19/17 06:25 Discharge Plan - Discharge Medications No Action Polyethylene Glycol Powder [Miralax] 17 gm PO DAILY Promethazine Tab [Phenergan Tab] 25 mg PO Q6H PRN PRN Reason: Nausea Nitroglycerin Sl Tab [Nitrostat] 0.4 mg SL Q5M PRN PRN Reason: Chest Pain traMADol TAB [Ultram] 50 mg PO TID Metoprolol Succinate Xl [Toprol Xl] 100 mg PO DAILY Potassium Chloride 40 meq PO AC LUNCH Potassium Chloride 40 meq PO DAILY Albuterol Sulfate [Proair HFA] 2 puff INH Q4HR Gabapentin Cap/Tab [Neurontin Cap/Tab] 300 mg PO BID Levothyroxine Tab [Synthroid Tab] 100 mcg PO DAILY@0700 Furosemide Tab [Lasix Tab] 80 mg PO DAILY Citalopram Hydrobromide [Celexa] 40 mg PO DAILY Allopurinol 300 mg PO DAILY Spironolactone [Aldactone] 25 mg PO BID Albuterol/Ipratropium Neb [Duoneb] 3 ml RESP TX Q8H Potassium Chloride 40 meq PO BEDTIME Methocarbamol Tab [Robaxin Tab] 750 mg PO TID PRN PRN Reason: Pain Omeprazole [Prilosec] 40 mg PO BID Clopidogrel [Plavix] 75 mg PO DAILY Fluticasone/Vilanterol [Breo Ellipta 100-25 Mcg INH] 1 puff INH DAILY - Follow Up or Referral - Forms/Instructions
--- NOTE | 2017-01-21 10:58 | Anesthesia ---
Anesthesia Post OP - Post Ansesthetic Evaluation Patient seen in post op: Yes Resp: within normal limits CV: within normal limits Mental: within normal limits Temp: within normal limits [id number]: within normal limits Nausea and Vomiting: within normal limits Pain: within normal limits
--- NOTE | 2017-01-21 12:03 | Hospitalist Progress Note ---
Assessment and Plan - Time spent with patient Time spent with patient: Greater than 30 minutes (1) GI bleeding Status: Acute Assessment and plan: 71-year-old white female admitted with suspected ischemic colitis, GI bleeding, and gram-positive cocci UTI. Patient's case has been discussed with Dr. Bhatt. Further recommendations to follow. Colitis--patient underwent EGD by Dr. Chou this morning. He found a large hiatal hernia recommended continuing PPI treatment and antireflux precautions. He also found an esophageal polyp that was likely inflammatory. He will consider repeating endoscopy for removal of this polyp after the Plavix has been held for 5 days. Patient is to undergo colonoscopy on after she has been off her Plavix for 5 days. She is on a clear liquid diet and will start: Cleansing soon in preparation for colonoscopy on . Anemia--this is stable after her 2 units of transfusion upon admission. Patient is feeling much better with no complaints of dizziness. GPC UTI--cultures are back showing sensitivity to Cipro. This has been started. Hypertension--patient's metoprolol has been decreased and diuretics are being held for now. Systolic still running in the low 100s. Patient is asymptomatic Current Visit: Yes (2) Anemia Status: Acute Current Visit: Yes (3) History of syncope Status: Acute Current Visit: Yes (4) Colitis Status: Acute Current Visit: Yes (5) UTI (urinary tract infection) Status: Acute Current Visit: Yes Hospitalist: Subjective Interval history: Patient states she feels better than she has in years. She thinks they gave her "runners blood ." Patient's symptoms upon admission have resolved. She is ambulating in the room and to the bathroom without her walker. She is having no dizziness. She states she still has some old blood on her tissue when she wipes. Patient is on a clear liquid diet now awaiting colonoscopy on by Dr. Chou. Exam - Constitutional Vitals: Period Temp Pulse Resp BP Sys/Calderon Pulse Ox Last 24 Hr 97.7 F-98.2 F 67-83 15-20 104-138/50-72 94-99 Exam: 71-year-old white female, no acute distress, alert and oriented Chest clear CV regular rate and rhythm Abdomen obese, nontender Extremities with no edema Results - Labs CBC & BMP: 01/21/17 04:46 01/19/17 06:25 Lab Results: I have reviewed the past 24 hour labs Quality Measures - VTE Contraindication to Pharmacological VTE Prophylaxis: Active Bleeding
[2017-01-21] MEDS: POLYETHYLENE GLYCOL POWDER 17 GM PACK PO SCH (13:00)
[2017-01-21] MEDS: PANTOPRAZOLE 40 MG VIAL IV SCH ×2 (13:00→21:54)
[2017-01-21] MEDS: GABAPENTIN 300 MG CAPSULE PO SCH ×2 (13:01→21:54)
[2017-01-21] MEDS: CITALOPRAM 40 MG TABLET PO SCH (13:01)
[2017-01-21] MEDS: CIPROFLOXACIN 500 MG TABLET PO SCH ×2 (13:01→21:54)
[2017-01-21] MEDS: FUROSEMIDE 80 MG TABLET PO SCH (13:01)
[2017-01-21] MEDS: METOPROLOL SUCCINATE XL 50 MG TABLET PO SCH (13:02)
[2017-01-21] MEDS: ALLOPURINOL 300 MG TABLET PO SCH (13:02)
[2017-01-21] MEDS: SPIRONOLACTONE 25 MG TABLET PO SCH ×2 (13:02→21:55)
[2017-01-21] MEDS: traMADol 50 MG TABLET PO SCH ×3 (13:03→21:54)
[2017-01-22 05:46] LABS: Basophils # 0.1 10*3/uL (0.0-0.2); Basophils % 0.9 % (0.0-0.8); Eosinophils # 0.5 10*3/uL (0.0-0.87); Eosinophils % 5.6 % (0.00-10.9); Hematocrit 36.1 VOL% (35.7-47.0); Hemoglobin 10.7 GM/DL (12.0-16.0); Immature Granulocytes % 0.3 %; Immature Granulocytes Absolute 0.03 #; Lymphocytes # 2.8 10*3/uL (1.4-4.0); Lymphocytes % 31.1 % (21.3-54.2); Mean Corpuscular HGB Conc 29.6 GM/DL (32-36); Mean Corpuscular Hemoglobin 24 PG (27-34); Mean Corpuscular Volume 79.2 FL (87-102); Mean Platelet Volume 8.9 FL (9.6-12.0); Monocytes # 0.4 10*3/uL (0.11-0.8); Monocytes % 4.9 % (1.7-12.7); Neutrophils # 5.2 10*3/uL (1.4-7.4); Neutrophils % 57.2 % (38.7-73.9); Platelet Count 352 T/CUMM (130-400); Red Blood Count 4.56 MC/CUMM (3.8-5.5); Red Cell Distribution Width 17.4 % (9.3-17.3)
[2017-01-22] MEDS: LEVOTHYROXINE 100 MCG TABLET PO SCH (06:29)
[2017-01-22] MEDS: ALBUTEROL/IPRATROPIUM 3 ML NEB RESP TX SCH ×3 (07:27→23:37)
[2017-01-22] MEDS: POLYETHYLENE GLYCOL POWDER 17 GM PACK PO SCH (09:03)
[2017-01-22] MEDS: CIPROFLOXACIN 500 MG TABLET PO SCH ×2 (09:04→20:51)
[2017-01-22] MEDS: FUROSEMIDE 80 MG TABLET PO SCH (09:04)
[2017-01-22] MEDS: GABAPENTIN 300 MG CAPSULE PO SCH ×2 (09:04→20:51)
[2017-01-22] MEDS: ALLOPURINOL 300 MG TABLET PO SCH (09:04)
[2017-01-22] MEDS: SPIRONOLACTONE 25 MG TABLET PO SCH ×2 (09:04→21:01)
[2017-01-22] MEDS: CITALOPRAM 40 MG TABLET PO SCH (09:04)
[2017-01-22] MEDS: METOPROLOL SUCCINATE XL 50 MG TABLET PO SCH (09:04)
[2017-01-22] MEDS: PANTOPRAZOLE 40 MG VIAL IV SCH ×2 (09:04→20:50)
[2017-01-22] MEDS: traMADol 50 MG TABLET PO SCH ×3 (09:05→20:51)
[2017-01-22] MEDS ORDERED: BISACODYL 5 MG TABLET PO ONE (10:47)
--- NOTE | 2017-01-22 10:47 | Gastrointestinal Progress Note ---
<JesunicolásRoya Nico - Last Filed: 01/22/17 10:44> Assessment and Plan (1) Hematochezia Status: Acute Assessment and plan: 01/21-no overt bleeding reported. Hemoglobin stable at 10.7. Begin prep for colonoscopy. And proceed with colonoscopy on tomorrow. Plan an addendum to follow by Dr. Chou. 01/20-no further bleeding since admission. Hemoglobin holding at 10 following 2 units of packed red blood cells over the weekend. Plavix held since Friday. Tolerating diet. Plan an addendum to follow by Dr. Chou. Current Visit: Yes Gastroenterology - PN: Subj Interval history: CC: GI bleed Patient seen awake and alert sitting up on the side of the bed. States she had a restful night. Denies any abdominal pain, nausea or vomiting. Denies any overt bleeding. EGD findings noted with large hiatal hernia and esophageal polyp. This was not removed due to Plavix having not being held in adequate amount of time. Abdomen is soft, nontender. She is tolerating clear liquid diet well. Hemoglobin is stable at 10.7. She is to start her prep today for colonoscopy on tomorrow. ROS: Denies shortness of breath or chest pain Exam (Progress Note) - Constitutional Vitals: Period Temp Pulse Resp BP Sys/Calderon Pulse Ox Last 24 Hr 97.4 F-98.7 F 63-86 16-22 104-123/50-69 92-100 General appearance: normal weight, no acute distress - Head Head exam: Present: normal inspection, normocephalic - Eye Eye exam: Present: other (Lids and conjunctivae unremarkable). Absent: scleral icterus - ENT ENT exam: Present: normal exam, normal oropharynx - Neck Neck exam: Present: normal inspection - Respiratory Respiratory exam: Present: clear to auscultation bilaterally. Absent: rales, rhonchi, wheezes - Cardiovascular Cardiovascular exam: Present: regular rate and rhythm. Absent: diastolic murmur , JVD, systolic murmur - GI/Abdominal GI/Abdominal exam: Present: normal bowel sounds, soft. Absent: ascites, distended, mass, organomegaly, tenderness - Extremities Exam Extremities exam: Present: normal inspection, full ROM - Back Exam Back exam: Present: normal inspection - Neurological Exam Neurological exam: Present: alert, oriented X3 - Psychiatric Psychiatric exam: Present: normal affect, normal mood - Skin Skin exam: Present: normal color, warm, dry Results - Labs CBC & BMP: 01/22/17 05:11 01/19/17 06:25 Lab Results: I have reviewed the past 24 hour labs <Lorenzo Chou - Last Filed: 01/22/17 17:43> Exam (Progress Note) - Constitutional Vitals: Period Temp Pulse Resp BP Sys/Calderon Pulse Ox Last 24 Hr 97.4 F-98.7 F 63-86 16-22 101-123/59-67 92-100 Results - Labs CBC & BMP: 01/22/17 05:11 01/19/17 06:25
[2017-01-22] MEDS ORDERED: POLYETHYLENE GLYCOL POWDER 255 GM BOTTLE PO ONE (12:00)
--- NOTE | 2017-01-22 12:37 | Hospitalist Progress Note ---
Assessment and Plan (1) Colitis Status: Acute Assessment and plan: 1)colitis/hematochezia- on antibiotics, bleeding has stopped and plan is for cscope in the morning. 2)acute blood loss anemia- replaced over weekend and H&H stable since 3)history of syncope- no complaints here. has had outpatient work upwith cardiology. no dizziness. 4)Enterococcal UTI- sensitive to levaquin, continue. 5)HTN- BP looks ok on decreased betablocker. holding diuretics, likely resume tomorrow after colon prep. Current Visit: Yes (2) Hematochezia Status: Acute Current Visit: Yes (3) Anemia Status: Acute Current Visit: Yes (4) History of syncope Status: Acute Current Visit: Yes (5) Coronary artery disease Status: Chronic Current Visit: Yes (6) UTI (urinary tract infection) Status: Acute Current Visit: Yes Hospitalist: Subjective Interval history: No new complaints. She has started her colon prep. No more bleeding. Exam - Constitutional Vitals: Period Temp Pulse Resp BP Sys/Calderon Pulse Ox Last 24 Hr 97.4 F-98.7 F 63-86 16-22 113-123/61-69 92-100 General appearance: no acute distress, over weight - Head Head exam: Present: normocephalic, atraumatic - Eye Eye exam: Present: EOMI. Absent: scleral icterus - Respiratory Respiratory exam: Present: clear to auscultation bilaterally - Cardiovascular Cardiovascular exam: Present: regular rate and rhythm - GI/Abdominal GI/Abdominal exam: Present: normal bowel sounds, soft. Absent: tenderness - Extremities Exam Extremities exam: Absent: edema Results - Labs CBC & BMP: 01/22/17 05:11 01/19/17 06:25 Lab Results: I have reviewed the past 24 hour labs Quality Measures - VTE Contraindication to Pharmacological VTE Prophylaxis: Active Bleeding
[2017-01-22] MEDS ORDERED: MAGNESIUM CITRATE 300 ML BOTTLE PO ONE (21:00)
[2017-01-23] MEDS: VILANTEROL INH SCH ×2 (06:06→09:27)
[2017-01-23] MEDS: FLUTICASONE INH SCH ×2 (06:06→09:27)
[2017-01-23] MEDS: ALBUTEROL/IPRATROPIUM 3 ML NEB RESP TX SCH ×2 (07:17→14:42)
[2017-01-23] MEDS: LEVOTHYROXINE 100 MCG TABLET PO SCH (07:59)
[2017-01-23] MEDS: POTASSIUM CHLORIDE RIDER 10 MEQ in PREMIX 1 EACH IV SCH ×2 (08:27→10:00)
[2017-01-23] MEDS: PANTOPRAZOLE 40 MG VIAL IV SCH (08:28)
[2017-01-23] MEDS: traMADol 50 MG TABLET PO SCH ×2 (09:00→16:11)
[2017-01-23] MEDS ORDERED: LIDOCAINE 2% TOP JELLY 5 ML TUBE TOP ONE (11:02)
[2017-01-23] MEDS ORDERED: PROPOFOL 200 MG/20 ML VIAL IV ONE (11:02)
--- NOTE | 2017-01-23 11:34 | Anesthesia Post-Op ---
Anesthesia Post OP - Post Ansesthetic Evaluation Patient seen in post op: Yes Resp: within normal limits CV: within normal limits Mental: within normal limits Temp: within normal limits Hunq-[id number]-[id number]: within normal limits Nausea and Vomiting: within normal limits Pain: within normal limits
--- NOTE | 2017-01-23 11:34 | Operative Note ---
Date of procedure: 01/23/17 Pre-op diagnosis: Rectal bleeding Procedure: Colonoscopy with hot biopsy and electrocautery snare polypectomy 71-year-old female admitted with rectal bleeding complicated by chronic anticoagulation now for colonoscopy to further evaluate. Her Plavix has been held. Patient informed consent was obtained for the patient. Patient was sedated with MAC anesthesia per anesthesia protocol. Patient placed left lateral decubitus position digital exam was normal no masses felt. Prep this procedure is fair there is some opaque fluid and residual stool that is aspirated with some difficulty. Withdrawal time total 9 minutes Findings: Cecum-identified the ileocecal valve appendiceal orifice. Terminal ileum-normal Ascending colon-normal Transverse colon-2 polyps each 5 mm hot biopsy fulgurated Descending colon-diverticulosis no active bleeding Sigmoid colon-diverticulosis no active bleeding Rectum-surgical anastomosis noted in the rectum from unknown prior partial colectomy. An associated 8 mm polyp was snared this may be tissue granuloma as well. No source of obvious bleeding identified diverticulosis is the most likely source for her bleeding. Postop diagnosis: 1. Colon polyps 3 as above 2. Diverticulosis-likely source for bleeding episode 3. Prior surgical resection of the distal colon of unclear reason. Anesthesia: MAC Surgeon / Physician: Lorenzo Chou Estimated blood loss: none Specimens: other (1. Transverse polyps 2 #2 rectal polyp) Condition: stable Disposition: post procedure unit Results - Labs CBC & BMP: 01/22/17 05:11 01/23/17 04:36 Discharge Plan - Discharge Medications No Action Polyethylene Glycol Powder [Miralax] 17 gm PO DAILY Promethazine Tab [Phenergan Tab] 25 mg PO Q6H PRN PRN Reason: Nausea Nitroglycerin Sl Tab [Nitrostat] 0.4 mg SL Q5M PRN PRN Reason: Chest Pain traMADol TAB [Ultram] 50 mg PO TID Metoprolol Succinate Xl [Toprol Xl] 100 mg PO DAILY Potassium Chloride 40 meq PO TID Albuterol Sulfate [Proair HFA] 2 puff INH Q4HR Gabapentin Cap/Tab [Neurontin Cap/Tab] 300 mg PO BID Levothyroxine Tab [Synthroid Tab] 100 mcg PO DAILY@0700 Furosemide Tab [Lasix Tab] 80 mg PO DAILY Citalopram Hydrobromide [Celexa] 40 mg PO DAILY Allopurinol 300 mg PO DAILY Spironolactone [Aldactone] 25 mg PO BID Albuterol/Ipratropium Neb [Duoneb] 3 ml RESP TX Q8H Methocarbamol Tab [Robaxin Tab] 750 mg PO TID PRN PRN Reason: Pain Omeprazole [Prilosec] 40 mg PO BID Clopidogrel [Plavix] 75 mg PO DAILY Fluticasone/Vilanterol [Breo Ellipta 100-25 Mcg INH] 1 puff INH DAILY - Follow Up or Referral - Forms/Instructions
[2017-01-23] MEDS: METOPROLOL SUCCINATE XL 50 MG TABLET PO SCH (13:04)
[2017-01-23] MEDS: CITALOPRAM 40 MG TABLET PO SCH (13:04)
[2017-01-23] MEDS: SPIRONOLACTONE 25 MG TABLET PO SCH (13:04)
[2017-01-23] MEDS: POLYETHYLENE GLYCOL POWDER 17 GM PACK PO SCH (13:04)
[2017-01-23] MEDS: ALLOPURINOL 300 MG TABLET PO SCH (13:04)
[2017-01-23] MEDS: FUROSEMIDE 80 MG TABLET PO SCH (13:04)
[2017-01-23] MEDS: GABAPENTIN 300 MG CAPSULE PO SCH (13:04)
[2017-01-23] MEDS: CIPROFLOXACIN 500 MG TABLET PO SCH (13:04)
--- NOTE | 2017-01-23 15:55 | Discharge Summary ---
Hospital Course - Hospital Course Hospital Course: Mrs Mauricio presented with hematochezia. She had acute blood loss anemia. She was on Plavix which was held. She was transfused on arrival and her H&H has been stable since. She has had an EGD which showed hiatal hernia and esophageal polyp and today had cscope which showed diverticulosis as most likely source of her bleeding and also 3 polyps which were removed. She did not require as much metoprolol inhospital as she was taking at home. Given her history of dizziness, I am sending her home on half of her previous dose which she tolerated well in the hospital. She lost her IV today before she could receive all of her IV KCL rider. Instead I will give her 20mEQ po before discharge. She will resume her potssium replacement at home. She has a Enterococcal UTI which is sensitive to cipro. She will require a few more days of treatment for this. She will follow up with her PCP in onen week and with Dr José Antonio maldonado. She will resume Plavix today- I discussed this with Dr Chou. He will let her know if anything comes up on her biopsies. - Time spent with patient Time with patient DS: Greater than 30 minutes (38 minutes for care coordination , medicine reconciliation, documentation, discussing discharge meds with patient ) Diagnosis - Discharge Diagnosis (1) Hematochezia Status: Resolved (2) History of syncope Status: Chronic (3) Coronary artery disease Status: Chronic (4) Diverticular hemorrhage Status: Acute (5) Colon polyps Status: Resolved (6) Esophageal polyp Status: Chronic (7) Acute blood loss anemia Status: Resolved (8) Enterococcus UTI Status: Acute Specialty Discharge - Follow Up or Referrals Follow up with: Fletcher Goodman MD [Physician] - 1 Week Discharge Plan - Discharge Data Disposition: Disch To Home/Self Care Condition at Discharge: Stable Discharge Diet: advance to your usual diet Activity: resume usual activities as tolerated, ambulate only with your walker - Discharge Medications New Metoprolol Succinate Xl [Toprol Xl] 50 mg PO DAILY #30 tablet Continue Polyethylene Glycol Powder [Miralax] 17 gm PO DAILY Promethazine Tab [Phenergan Tab] 25 mg PO Q6H PRN PRN Reason: Nausea Nitroglycerin Sl Tab [Nitrostat] 0.4 mg SL Q5M PRN PRN Reason: Chest Pain traMADol TAB [Ultram] 50 mg PO TID Potassium Chloride 40 meq PO TID Albuterol Sulfate [Proair HFA] 2 puff INH Q4HR Gabapentin Cap/Tab [Neurontin Cap/Tab] 300 mg PO BID Levothyroxine Tab [Synthroid Tab] 100 mcg PO DAILY@0700 Furosemide Tab [Lasix Tab] 80 mg PO DAILY Citalopram Hydrobromide [Celexa] 40 mg PO DAILY Allopurinol 300 mg PO DAILY Spironolactone [Aldactone] 25 mg PO BID Albuterol/Ipratropium Neb [Duoneb] 3 ml RESP TX Q8H Methocarbamol Tab [Robaxin Tab] 750 mg PO TID PRN PRN Reason: Pain Omeprazole [Prilosec] 40 mg PO BID Clopidogrel [Plavix] 75 mg PO DAILY Fluticasone/Vilanterol [Breo Ellipta 100-25 Mcg INH] 1 puff INH DAILY Ciprofloxacin Tab [Cipro Tab] 500 mg PO BID #8 tablet Discontinued Metoprolol Succinate Xl [Toprol Xl] 100 mg PO DAILY - Follow Up or Referral Follow Up: Fletcher Goodman MD [Physician] - 1 Week - Forms/Instructions Exam - Constitutional Vitals: Period Temp Pulse Resp BP Sys/Calderon Pulse Ox Last 24 Hr 97.4 F-98.5 F 68-91 16-25 97-124/49-87 94-100 General appearance: normal weight, no acute distress - Head Head exam: Present: normocephalic, atraumatic - Eye Eye exam: Present: EOMI. Absent: scleral icterus - Respiratory Respiratory exam: Present: clear to auscultation bilaterally - Cardiovascular Cardiovascular exam: Present: regular rate and rhythm - GI/Abdominal GI/Abdominal exam: Present: normal bowel sounds, soft. Absent: tenderness - Extremities Exam Extremities exam: Absent: edema Discharge Results Labs on day of discharge: Labs from last 24 hours 01/23/17 04:36 Potassium 3.3 L DS: Provider Date of admission: 01/18/17 06:07 Primary care physician: . No PCP Attending physician on admission: Amina Duran MD Consults: 01/18/17 06:49 Consult to Pharmacy [CONS] Routine Reason for Pharmacy Consult: Adjust Meds Renal Funct 01/18/17 06:58 Consult to Physician [CONS] Routine Comment: GI bleeding/hematochezia Consulting Provider: Lorenzo Chou Consult to Specialist Group: Gastroenterology When should Consulting Provider be notified: Now 01/19/17 10:37 Consult to Pharmacy [CONS] Routine Reason for Pharmacy Consult: Dose/Manage Vancomycin 01/19/17 12:13 Consult to Pharmacy [CONS] Routine Reason for Pharmacy Consult: Dose/Manage Vancomycin Discharging clinician: Shasha Bhatt MD
[2017-01-23] MEDS ORDERED: POTASSIUM CHLORIDE 20 MEQ TABLET PO ONE (16:16)
[2017-01-23 17:37] VITALS: BP 109/55
--- NOTE | 2017-01-24 11:52 | Pathology Report from [facility] ---
ACCESSION # : [id number] PATIENT NAME : Morgan Mauricio ORDERING DR : MAKEDA CAMPOVERDE MD CLINICAL HX: GI bleed, anemia POST-OP DX: Same SPECIMEN INFO: #1 Transverse colon polyp #2 Rectal polyp GROSS DESCRIPTION: Received in formalin in two parts labeled:#1 "MORGAN MAURICIO & #1" are two caballero tissue fragments measuring 0.4 x 0.3 cm collectively, submitted in cassette #1.#2 "MORGAN MAURICIO & #2" are two caballero tissue fragments measuring 0.5 x 0.3 cm collectively submitted in cassette #2. DIAGNOSIS FOR MORGAN MAURICIO: #1 TRANSVERSE COLON: Tubular adenoma.#2 RECTUM : Inflammatory polyp with ulceration and granulation tissue. No evidence of malignancy. SERVICE DATE: 01/23/2017 REPORT DATE: 01/24/2017 PATHOLOGIST: Enoch Parson III, M.D. MTDD
== END 2017-01-23 20:00 | disposition home or self-care (01) | DRG 378 ==
LOC: N.ED 23:28 → N.EDINP 01-18 06:03 → SUATTDRO 01-18 06:07 → N.2E 01-18 06:39
PROVIDERS: ADMIT Internal Medicine; ATTEND Internal Medicine

== ENCOUNTER 2019-02-07 21:54 | Inpatient (IN) ==
[2019-02-08] MEDS ORDERED: SODIUM CHLORIDE 0.9% 1,000 ML IV STA ×2 (00:48→03:57)
[2019-02-08] MEDS ORDERED: ONDANSETRON 4 MG/2 ML VIAL IV ONE (00:48)
[2019-02-08 01:50] LABS: Basophils # 0.1 10*3/uL (0.0-0.2); Basophils % 0.6 % (0.0-0.8); Eosinophils % 0.2 % (0.00-10.9); Hematocrit 33.7 VOL% (35.7-47.0); Hemoglobin 10.1 GM/DL (12.0-16.0); Immature Granulocytes % 0.9 %; Immature Granulocytes Absolute 0.17 #; Lymphocytes # 3.4 10*3/uL (1.4-4.0); Lymphocytes % 18.3 % (21.3-54.2); Mean Corpuscular Volume 83.6 FL (87-102); Mean Platelet Volume 9.3 FL (9.6-12.0); Monocytes % 10.9 % (1.7-12.7); Neutrophils % 69.1 % (38.7-73.9); Platelet Count 284 T/CUMM (130-400); Red Blood Count 4.03 MC/CUMM (3.8-5.5); Red Cell Distribution Width 17.5 % (9.3-17.3); White Blood Count 18.8 T/CUMM (4-12)
[2019-02-08 01:54] LABS: PT Patient Result 11.2 SECS
[2019-02-08 01:59] LABS: Albumin 3.6 G/DL (3.4-5.0); Calcium 8.6 MG/DL (8.5-10.1); Osmolality,Calculated 268.2 MOS/KG (273-304); Total Protein 6.9 G/DL (6.4-8.3)
[2019-02-08 03:11] LABS: Apearance,Urine CLEAR (Clear); Bacteria,Urine Moderate /HPF (Few); Bilirubin,Urine Negative (Negative); Blood, Urine Small mg/dL (Negative); Glucose,Urine (UA) Negative (Negative); Ketones,Urine Negative (Negative); Nitrite,Urine Positive (Negative); Protein,Urine Negative; RBC,Urine 2 /HPF (0-4); Squamous Epithelial Cell,Urine Occasional /HPF (0-10); Urine Color Yellow (Yellow); Urine Specific Gravity 1.003 (1.001-1.035); Urine Urobilinogen < 2.0 EU/DL (0.2-1.0); WBC,Urine 39 /HPF (0-6)
[2019-02-08] MEDS ORDERED: cefTRIAXone 1,000 MG in SODIUM CHLORIDE 0.9% 100 ML IV STA (03:29)
[2019-02-08] MEDS ORDERED: ONDANSETRON 4 MG/2 ML VIAL IV PRN (04:09)
[2019-02-08] MEDS ORDERED: PROMETHAZINE 25 MG/1 ML VIAL IM PRN (04:09)
[2019-02-08] MEDS: SODIUM CHLORIDE 0.9% 1,000 ML IV SCH ×3 (05:50→21:38)
[2019-02-08] MEDS ORDERED: ALBUTEROL 2.5 MG/3 ML NEB RESP TX PRN (07:57)
[2019-02-08] MEDS ORDERED: PROMETHAZINE 25 MG TABLET PO PRN (07:57)
[2019-02-08] MEDS ORDERED: ALBUTEROL/IPRATROPIUM 3 ML NEB RESP TX PRN (07:57)
[2019-02-08] MEDS ORDERED: diphenhydrAMINE CAP 25 MG CAPSULE PO PRN (07:57)
[2019-02-08] MEDS ORDERED: NITROGLYCERIN SL 0.4 MG TABLET SL PRN (07:57)
[2019-02-08] MEDS ORDERED: EPINEPHRINE 0.3 MG IJ SCH (08:00)
[2019-02-08] MEDS: POTASSIUM CHLORIDE 20 MEQ TABLET PO SCH ×2 (09:15→21:35)
[2019-02-08] MEDS: SPIRONOLACTONE 50 MG TABLET PO SCH ×2 (09:15→21:37)
[2019-02-08] MEDS: SERTRALINE 25 MG TABLET PO SCH (09:15)
[2019-02-08] MEDS: METOPROLOL SUCCINATE XL 50 MG TABLET PO SCH (09:15)
[2019-02-08] MEDS: ASPIRIN 325 MG TABLET PO SCH (09:15)
[2019-02-08] MEDS: METHEN/SOD PHOS/METH BLUE/HYOS TABLET PO SCH ×4 (09:15→21:37)
[2019-02-08] MEDS: PANTOPRAZOLE 40 MG TABLET PO SCH ×2 (09:16→16:30)
[2019-02-08] MEDS: FUROSEMIDE 80 MG TABLET PO SCH (09:16)
[2019-02-08] MEDS: traMADol 50 MG TABLET PO SCH ×3 (09:16→21:35)
[2019-02-08] MEDS: ALLOPURINOL 300 MG TABLET PO SCH (09:16)
[2019-02-08] MEDS: CLOPIDOGREL 75 MG TABLET PO SCH (09:16)
[2019-02-08] MEDS: FLUTICASONE INH SCH (09:30)
[2019-02-08] MEDS: VILANTEROL INH SCH (09:30)
[2019-02-08] MEDS: DICLOFENAC 1% GEL 100 GM TUBE TOP SCH ×4 (10:55→21:41)
[2019-02-08] MEDS ORDERED: EPINEPHRINE 0.3 MG IJ PRN (14:00)
[2019-02-08] MEDS: ATORVASTATIN 10 MG TABLET PO SCH (21:37)
[2019-02-09] MEDS: cefTRIAXone 1,000 MG in SYRINGE 1 EACH IV SCH (05:13)
[2019-02-09] MEDS: LEVOTHYROXINE 100 MCG TABLET PO SCH (06:12)
[2019-02-09 06:58] LABS: Basophils # 0.1 10*3/uL (0.0-0.2); Basophils % 0.5 % (0.0-0.8); Eosinophils # 0.1 10*3/uL (0.0-0.87); Eosinophils % 0.5 % (0.00-10.9); Hematocrit 28.8 VOL% (35.7-47.0); Hemoglobin 8.8 GM/DL (12.0-16.0); Immature Granulocytes % 0.4 %; Immature Granulocytes Absolute 0.04 #; Lymphocytes # 1.8 10*3/uL (1.4-4.0); Lymphocytes % 17.7 % (21.3-54.2); Mean Corpuscular HGB Conc 30.6 GM/DL (32-36); Mean Platelet Volume 9.8 FL (9.6-12.0); Monocytes % 14.3 % (1.7-12.7); Neutrophils % 66.6 % (38.7-73.9); Platelet Count 245 T/CUMM (130-400); Red Blood Count 3.43 MC/CUMM (3.8-5.5); Red Cell Distribution Width 17.6 % (9.3-17.3); White Blood Count 10.4 T/CUMM (4-12)
[2019-02-09 07:38] LABS: Albumin 2.9 G/DL (3.4-5.0); Bilirubin,Total 0.7 MG/DL (0.2-1.0); Calcium 8.3 MG/DL (8.5-10.1); Osmolality,Calculated 272.7 MOS/KG (273-304)
[2019-02-09] MEDS ORDERED: POTASSIUM CHLORIDE 20 MEQ TABLET PO ONE ×2 (08:21→16:00)
[2019-02-09] MEDS: VILANTEROL INH SCH (08:50)
[2019-02-09] MEDS: FLUTICASONE INH SCH (08:50)
[2019-02-09] MEDS: METOPROLOL SUCCINATE XL 50 MG TABLET PO SCH (09:02)
[2019-02-09] MEDS: PANTOPRAZOLE 40 MG TABLET PO SCH ×2 (09:02→16:13)
[2019-02-09] MEDS: traMADol 50 MG TABLET PO SCH ×3 (09:02→22:03)
[2019-02-09] MEDS: ALLOPURINOL 300 MG TABLET PO SCH (09:02)
[2019-02-09] MEDS: POTASSIUM CHLORIDE 20 MEQ TABLET PO SCH ×2 (09:02→22:02)
[2019-02-09] MEDS: SERTRALINE 25 MG TABLET PO SCH (09:02)
[2019-02-09] MEDS: ASPIRIN 325 MG TABLET PO SCH (09:02)
[2019-02-09] MEDS: METHEN/SOD PHOS/METH BLUE/HYOS TABLET PO SCH ×4 (09:02→22:03)
[2019-02-09] MEDS: SPIRONOLACTONE 50 MG TABLET PO SCH ×2 (09:02→22:03)
[2019-02-09] MEDS: CLOPIDOGREL 75 MG TABLET PO SCH (09:02)
[2019-02-09] MEDS: DICLOFENAC 1% GEL 100 GM TUBE TOP SCH ×4 (09:03→22:04)
[2019-02-09] MEDS: POLYETHYLENE GLYCOL POWDER 17 GM PACK PO SCH (15:48)
[2019-02-09] MEDS: ATORVASTATIN 10 MG TABLET PO SCH (22:03)
[2019-02-10] MEDS: cefTRIAXone 1,000 MG in SYRINGE 1 EACH IV SCH (03:56)
[2019-02-10] MEDS: LEVOTHYROXINE 100 MCG TABLET PO SCH (05:42)
[2019-02-10 06:57] LABS: Basophils # 0.1 10*3/uL (0.0-0.2); Basophils % 0.7 % (0.0-0.8); Eosinophils # 0.2 10*3/uL (0.0-0.87); Hematocrit 30.7 VOL% (35.7-47.0); Hemoglobin 9.1 GM/DL (12.0-16.0); Immature Granulocytes % 0.3 %; Immature Granulocytes Absolute 0.03 #; Lymphocytes # 2.3 10*3/uL (1.4-4.0); Lymphocytes % 23.6 % (21.3-54.2); Mean Corpuscular HGB Conc 29.6 GM/DL (32-36); Mean Corpuscular Volume 84.8 FL (87-102); Monocytes % 11.7 % (1.7-12.7); Neutrophils % 61.7 % (38.7-73.9); Platelet Count 301 T/CUMM (130-400); Red Blood Count 3.62 MC/CUMM (3.8-5.5); Red Cell Distribution Width 17.4 % (9.3-17.3); White Blood Count 9.6 T/CUMM (4-12)
[2019-02-10 07:27] LABS: Calcium 9.1 MG/DL (8.5-10.1); Osmolality,Calculated 277.4 MOS/KG (273-304)
[2019-02-10] MEDS: VILANTEROL INH SCH (09:57)
[2019-02-10] MEDS: FLUTICASONE INH SCH (09:57)
[2019-02-10] MEDS: METHEN/SOD PHOS/METH BLUE/HYOS TABLET PO SCH (09:59)
[2019-02-10] MEDS: CLOPIDOGREL 75 MG TABLET PO SCH (09:59)
[2019-02-10] MEDS: POTASSIUM CHLORIDE 20 MEQ TABLET PO SCH (09:59)
[2019-02-10] MEDS: ALLOPURINOL 300 MG TABLET PO SCH (09:59)
[2019-02-10] MEDS: METOPROLOL SUCCINATE XL 50 MG TABLET PO SCH (09:59)
[2019-02-10] MEDS: FUROSEMIDE 80 MG TABLET PO SCH (09:59)
[2019-02-10] MEDS: POLYETHYLENE GLYCOL POWDER 17 GM PACK PO SCH (09:59)
[2019-02-10] MEDS: SERTRALINE 25 MG TABLET PO SCH (09:59)
[2019-02-10] MEDS: PANTOPRAZOLE 40 MG TABLET PO SCH (09:59)
[2019-02-10] MEDS: ASPIRIN 325 MG TABLET PO SCH (09:59)
[2019-02-10] MEDS: traMADol 50 MG TABLET PO SCH (09:59)
[2019-02-10] MEDS: SPIRONOLACTONE 50 MG TABLET PO SCH (09:59)
[2019-02-10] MEDS: DICLOFENAC 1% GEL 100 GM TUBE TOP SCH (10:00)
[2019-02-10 12:17] VITALS: BP 106/69
== END 2019-02-10 13:10 | disposition home or self-care (01) | DRG 690 ==
LOC: N.ED 21:54 → N.EDINP 02-08 04:09 → SUATTDRO 02-08 04:09 → N.5E 02-08 04:49
PROVIDERS: ADMIT Internal Medicine Nephrology; ATTEND Family Medicine

== ENCOUNTER 2022-05-22 14:42 | Inpatient (IN) ==
[2022-05-22] MEDS ORDERED: SODIUM CHLORIDE 0.9% 500 ML IV STA (15:30)
[2022-05-22] MEDS ORDERED: cefTRIAXone 1,000 MG in SODIUM CHLORIDE 0.9% 100 ML IV STA (15:30)
[2022-05-22 16:30] LABS: Basophils # 0.1 10*3/uL (0.0-0.2); Basophils % 0.2 % (0.0-0.8); Eosinophils % 0.1 % (0.00-10.9); Hematocrit 37.1 VOL% (35.7-47.0); Hemoglobin 12.1 GM/DL (12.0-16.0); Immature Granulocytes % 1.1 %; Immature Granulocytes Absolute 0.29 #; Lymphocytes # 1.7 10*3/uL (1.4-4.0); Lymphocytes % 6.1 % (21.3-54.2); Mean Corpuscular HGB Conc 32.6 GM/DL (32-36); Mean Corpuscular Volume 82.1 FL (87-102); Mean Platelet Volume 8.9 FL (9.6-12.0); Monocytes # 1.7 10*3/uL (0.11-0.8); Monocytes % 6.2 % (1.7-12.7); Neutrophils % 86.3 % (38.7-73.9); Platelet Count 422 T/CUMM (130-400); Red Blood Count 4.52 MC/CUMM (3.8-5.5); Red Cell Distribution Width 14.9 % (9.3-17.3); White Blood Count 27.1 T/CUMM (4-12)
[2022-05-22 16:48] LABS: Albumin 3.1 G/DL (3.4-5.0); Bilirubin,Total 1.3 MG/DL (0.20-1.00); Calcium 9.7 MG/DL (8.5-10.1); Osmolality,Calculated 258.1 MOS/KG (273-304); Potassium 2.9 MMOL/L (3.5-5.1); Total Protein 7.1 G/DL (6.4-8.2)
[2022-05-22 17:13] LABS: Bacteria,Urine Occasional /HPF (Few); Squamous Epithelial Cell,Urine Occasional /HPF (0-10)
[2022-05-22] MEDS ORDERED: POTASSIUM CHLORIDE 20 MEQ TABLET PO STA (17:14)
[2022-05-22 17:16] LABS: Lymphocytes 4 % (20-55); Platelet Estimate Increased; Total Cells Counted 100
[2022-05-22 17:17] LABS: Bilirubin,Urine Negative (Negative); Blood, Urine Negative (Negative); Glucose,Urine (UA) Negative (Negative); Ketones,Urine Negative (Negative); Nitrite,Urine Negative (Negative); Protein,Urine Negative (Negative); Urine Appearance Clear (Clear); Urine Color Yellow (Yellow)
[2022-05-22] MEDS ORDERED: DEXTROSE 10% 250 ML BAG IV PRN (17:56)
[2022-05-22] MEDS ORDERED: GLUCAGON 1 MG VIAL IM PRN (17:56)
[2022-05-22] MEDS ORDERED: cefTRIAXone 1,000 MG in SODIUM CHLORIDE 0.9% 100 ML IV SCH (18:00)
[2022-05-22] MEDS: ALBUTEROL/IPRATROPIUM 3 ML NEB RESP TX SCH (19:13)
[2022-05-22] MEDS: traMADol 50 MG TABLET PO SCH (20:29)
[2022-05-22] MEDS: ATORVASTATIN 10 MG TABLET PO SCH (20:29)
[2022-05-22] MEDS: SODIUM CHLOR 0.9% KCL 20 MEQ 20 MEQ/1,000 ML BAG IV SCH (20:34)
[2022-05-22] MEDS: MEROPENEM 500 MG in SODIUM CHLORIDE 0.9% 100 ML IV SCH (20:36)
[2022-05-22] MEDS ORDERED: [UNRECOGNIZED DRUG - MIXTURE] INH SCH (21:00)
[2022-05-22] MEDS ORDERED: VANCOMYCIN INJ 1,250 MG in SODIUM CHLORIDE 0.9% 250 ML IV SCH (21:00)
[2022-05-22] MEDS ORDERED: SODIUM CHLORIDE 0.9% 1,500 ML IV ONE (22:00)
[2022-05-23] MEDS: ALBUTEROL/IPRATROPIUM 3 ML NEB RESP TX SCH ×4 (00:07→21:55)
[2022-05-23 04:48] LABS: Basophils # 0.1 10*3/uL (0.0-0.2); Basophils % 0.4 % (0.0-0.8); Eosinophils % 0.1 % (0.00-10.9); Hematocrit 32.3 VOL% (35.7-47.0); Hemoglobin 10.5 GM/DL (12.0-16.0); Immature Granulocytes Absolute 0.25 #; Lymphocytes # 2.3 10*3/uL (1.4-4.0); Lymphocytes % 9.1 % (21.3-54.2); Mean Corpuscular HGB Conc 32.5 GM/DL (32-36); Mean Corpuscular Volume 82.6 FL (87-102); Mean Platelet Volume 8.8 FL (9.6-12.0); Monocytes # 1.7 10*3/uL (0.11-0.8); Monocytes % 6.7 % (1.7-12.7); Neutrophils % 82.7 % (38.7-73.9); Platelet Count 371 T/CUMM (130-400); Red Blood Count 3.91 MC/CUMM (3.8-5.5); Red Cell Distribution Width 15.1 % (9.3-17.3); White Blood Count 25.1 T/CUMM (4-12)
[2022-05-23] MEDS: MEROPENEM 500 MG in SODIUM CHLORIDE 0.9% 100 ML IV SCH ×3 (04:54→21:10)
[2022-05-23 05:08] LABS: Albumin 2.7 G/DL (3.4-5.0); Bilirubin,Total 1.2 MG/DL (0.20-1.00); Calcium 9.5 MG/DL (8.5-10.1); Osmolality,Calculated 260.7 MOS/KG (273-304); Potassium 3.1 MMOL/L (3.5-5.1); Total Protein 6.3 G/DL (6.4-8.2)
[2022-05-23 05:16] LABS: Band Neutrophils 1 % (0-10); Hypochromia Slight; Lymphocytes 5 % (20-55); Microcytosis 1+; Ovalocytes Slight; Total Cells Counted 100
[2022-05-23 05:17] LABS: Platelet Estimate Normal
[2022-05-23] MEDS: LEVOTHYROXINE 100 MCG TABLET PO SCH (05:47)
[2022-05-23] MEDS: PANTOPRAZOLE 40 MG TABLET PO SCH (05:47)
[2022-05-23] MEDS ORDERED: POTASSIUM CHLORIDE 20 MEQ TABLET PO ONE (09:00)
[2022-05-23] MEDS: CLOPIDOGREL 75 MG TABLET PO SCH (09:18)
[2022-05-23] MEDS: SERTRALINE 25 MG TABLET PO SCH (09:18)
[2022-05-23] MEDS: allopurinoL 300 MG TABLET PO SCH (09:18)
[2022-05-23] MEDS: METOPROLOL SUCCINATE XL 50 MG TABLET PO SCH (09:28)
[2022-05-23] MEDS: traMADol 50 MG TABLET PO SCH ×3 (10:23→21:04)
[2022-05-23] MEDS ORDERED: MAGNESIUM SULF RIDER 2 GM/50 ML PREMIX IV ONE (15:00)
[2022-05-23] MEDS: SODIUM CHLOR 0.9% KCL 20 MEQ 20 MEQ/1,000 ML BAG IV SCH ×2 (17:42→17:43)
[2022-05-23] MEDS: ATORVASTATIN 10 MG TABLET PO SCH (21:04)
[2022-05-23] MEDS: guaiFENesin/DM ER 600-30 MG TABLET PO PRN (21:04)
[2022-05-24] MEDS: ALBUTEROL/IPRATROPIUM 3 ML NEB RESP TX SCH ×4 (00:14→19:53)
[2022-05-24] MEDS: MEROPENEM 500 MG in SODIUM CHLORIDE 0.9% 100 ML IV SCH ×3 (04:06→20:08)
[2022-05-24 05:24] LABS: Basophils # 0.1 10*3/uL (0.0-0.2); Basophils % 0.4 % (0.0-0.8); Eosinophils # 0.5 10*3/uL (0.0-0.87); Eosinophils % 2.5 % (0.00-10.9); Hematocrit 33.9 VOL% (35.7-47.0); Hemoglobin 10.6 GM/DL (12.0-16.0); Immature Granulocytes % 0.8 %; Immature Granulocytes Absolute 0.18 #; Lymphocytes # 2.6 10*3/uL (1.4-4.0); Mean Corpuscular HGB Conc 31.3 GM/DL (32-36); Mean Corpuscular Volume 85.8 FL (87-102); Mean Platelet Volume 8.9 FL (9.6-12.0); Monocytes # 1.2 10*3/uL (0.11-0.8); Monocytes % 5.7 % (1.7-12.7); Neutrophils % 78.6 % (38.7-73.9); Platelet Count 348 T/CUMM (130-400); Red Blood Count 3.95 MC/CUMM (3.8-5.5); Red Cell Distribution Width 15.4 % (9.3-17.3); White Blood Count 21.6 T/CUMM (4-12)
[2022-05-24] MEDS: LEVOTHYROXINE 100 MCG TABLET PO SCH (05:34)
[2022-05-24] MEDS: PANTOPRAZOLE 40 MG TABLET PO SCH (05:34)
[2022-05-24 05:55] LABS: Calcium 8.8 MG/DL (8.5-10.1); Osmolality,Calculated 275.5 MOS/KG (273-304); Potassium 4.3 MMOL/L (3.5-5.1)
[2022-05-24 05:59] LABS: Eosinophils 4 % (0-10); Lymphocytes 9 % (20-55); Platelet Estimate Adequate; Total Cells Counted 100
[2022-05-24] MEDS: SODIUM CHLOR 0.9% KCL 20 MEQ 20 MEQ/1,000 ML BAG IV SCH ×2 (07:30→18:32)
[2022-05-24] MEDS: METOPROLOL SUCCINATE XL 50 MG TABLET PO SCH (08:23)
[2022-05-24] MEDS: traMADol 50 MG TABLET PO SCH ×3 (08:23→20:08)
[2022-05-24] MEDS: SERTRALINE 25 MG TABLET PO SCH (08:23)
[2022-05-24] MEDS: allopurinoL 300 MG TABLET PO SCH (08:24)
[2022-05-24] MEDS: CLOPIDOGREL 75 MG TABLET PO SCH (08:24)
[2022-05-24] MEDS: guaiFENesin/DM ER 600-30 MG TABLET PO PRN (20:08)
[2022-05-24] MEDS: ATORVASTATIN 10 MG TABLET PO SCH (20:08)
[2022-05-24] MEDS ORDERED: diphenhydrAMINE CAP 25 MG CAPSULE PO ONE (21:31)
[2022-05-25] MEDS: ALBUTEROL 2.5 MG/3 ML NEB RESP TX SCH ×4 (01:01→19:47)
[2022-05-25] MEDS: SODIUM CHLOR 0.9% KCL 20 MEQ 20 MEQ/1,000 ML BAG IV SCH ×2 (01:22→14:39)
[2022-05-25 01:27] LABS: Basophils # 0.1 10*3/uL (0.0-0.2); Basophils % 0.4 % (0.0-0.8); Eosinophils # 0.4 10*3/uL (0.0-0.87); Eosinophils % 1.4 % (0.00-10.9); Hematocrit 32.3 VOL% (35.7-47.0); Hemoglobin 10.1 GM/DL (12.0-16.0); Immature Granulocytes % 1.1 %; Immature Granulocytes Absolute 0.32 #; Lymphocytes % 7.3 % (21.3-54.2); Mean Corpuscular HGB Conc 31.3 GM/DL (32-36); Mean Corpuscular Volume 85.4 FL (87-102); Mean Platelet Volume 8.9 FL (9.6-12.0); Monocytes # 1.7 10*3/uL (0.11-0.8); Monocytes % 5.9 % (1.7-12.7); Neutrophils % 83.9 % (38.7-73.9); Platelet Count 378 T/CUMM (130-400); Red Blood Count 3.78 MC/CUMM (3.8-5.5); Red Cell Distribution Width 15.5 % (9.3-17.3); White Blood Count 28.1 T/CUMM (4-12)
[2022-05-25 01:34] LABS: Arterial Base Excess iSTAT 0 MMOL/L (-2.5-2.5); Arterial Bicarbonate iSTAT 23.3 MMOL/L (20-26); Arterial O2 Saturation iSTAT 86 % (95-100); Arterial PCO2 iSTAT 35 MM HG (35-48); Arterial PO2 iSTAT 49 MM HG (80-95); Arterial Total CO2 iSTAT 24 MMO/L (23-27); Arterial pH iSTAT 7.435 (7.35-7.45)
[2022-05-25 01:46] LABS: Band Neutrophils 1 % (0-10); Eosinophils 1 % (0-10); Lymphocytes 5 % (20-55); Platelet Estimate Normal; Total Cells Counted 100
[2022-05-25 01:52] LABS: Calcium 8.8 MG/DL (8.5-10.1); Osmolality,Calculated 261.7 MOS/KG (273-304); Potassium 4.4 MMOL/L (3.5-5.1)
[2022-05-25] MEDS: ACETAMINOPHEN 325 MG TABLET PO PRN (02:04)
[2022-05-25] MEDS: VANCOMYCIN INJ 1,250 MG in SODIUM CHLORIDE 0.9% 250 ML IV SCH ×2 (04:00→23:05)
[2022-05-25 05:09] LABS: Basophils # 0.1 10*3/uL (0.0-0.2); Basophils % 0.4 % (0.0-0.8); Eosinophils # 0.4 10*3/uL (0.0-0.87); Eosinophils % 1.5 % (0.00-10.9); Hematocrit 32.4 VOL% (35.7-47.0); Hemoglobin 10.1 GM/DL (12.0-16.0); Immature Granulocytes % 1.2 %; Immature Granulocytes Absolute 0.34 #; Lymphocytes # 2.4 10*3/uL (1.4-4.0); Mean Corpuscular HGB Conc 31.2 GM/DL (32-36); Mean Corpuscular Volume 86.9 FL (87-102); Monocytes # 1.9 10*3/uL (0.11-0.8); Monocytes % 7.1 % (1.7-12.7); Neutrophils % 80.8 % (38.7-73.9); Platelet Count 369 T/CUMM (130-400); Red Blood Count 3.73 MC/CUMM (3.8-5.5); Red Cell Distribution Width 15.5 % (9.3-17.3); White Blood Count 27.2 T/CUMM (4-12)
[2022-05-25 05:31] LABS: Eosinophils 2 % (0-10); Hypochromia Slight; Lymphocytes 11 % (20-55); Microcytosis Slight; Platelet Estimate Adequate; Total Cells Counted 100
[2022-05-25] MEDS: MEROPENEM 500 MG in SODIUM CHLORIDE 0.9% 100 ML IV SCH ×3 (05:33→21:31)
[2022-05-25 05:35] LABS: Calcium 8.6 MG/DL (8.5-10.1); Osmolality,Calculated 269.1 MOS/KG (273-304); Potassium 4.1 MMOL/L (3.5-5.1)
[2022-05-25] MEDS: LEVOTHYROXINE 100 MCG TABLET PO SCH (05:45)
[2022-05-25] MEDS: PANTOPRAZOLE 40 MG TABLET PO SCH (05:45)
[2022-05-25] MEDS: traMADol 50 MG TABLET PO SCH ×3 (09:39→21:31)
[2022-05-25] MEDS: CLOPIDOGREL 75 MG TABLET PO SCH (09:39)
[2022-05-25] MEDS: SERTRALINE 25 MG TABLET PO SCH (09:39)
[2022-05-25] MEDS: allopurinoL 300 MG TABLET PO SCH (09:39)
[2022-05-25] MEDS: METOPROLOL SUCCINATE XL 50 MG TABLET PO SCH (09:39)
[2022-05-25 18:37] LABS: Arterial Base Excess iSTAT -3 MMOL/L (-2.5-2.5); Arterial Bicarbonate iSTAT 21.4 MMOL/L (20-26); Arterial O2 Saturation iSTAT 97 % (95-100); Arterial PCO2 iSTAT 35 MM HG (35-48); Arterial PO2 iSTAT 94 MM HG (80-95); Arterial Total CO2 iSTAT 22 MMO/L (23-27); Arterial pH iSTAT 7.396 (7.35-7.45)
[2022-05-25] MEDS: ATORVASTATIN 10 MG TABLET PO SCH (21:31)
[2022-05-25] MEDS: guaiFENesin/DM ER 600-30 MG TABLET PO PRN (23:10)
[2022-05-26] MEDS: ALBUTEROL 2.5 MG/3 ML NEB RESP TX SCH ×2 (00:43→11:59)
[2022-05-26] MEDS: SODIUM CHLOR 0.9% KCL 20 MEQ 20 MEQ/1,000 ML BAG IV SCH ×2 (05:52→22:23)
[2022-05-26] MEDS: MEROPENEM 500 MG in SODIUM CHLORIDE 0.9% 100 ML IV SCH ×4 (05:53→23:56)
[2022-05-26] MEDS: PANTOPRAZOLE 40 MG TABLET PO SCH (05:55)
[2022-05-26] MEDS: LEVOTHYROXINE 100 MCG TABLET PO SCH (06:01)
[2022-05-26 06:31] LABS: Basophils # 0.1 10*3/uL (0.0-0.2); Basophils % 0.4 % (0.0-0.8); Eosinophils # 0.4 10*3/uL (0.0-0.87); Eosinophils % 1.6 % (0.00-10.9); Hematocrit 31.3 VOL% (35.7-47.0); Hemoglobin 9.8 GM/DL (12.0-16.0); Immature Granulocytes % 0.9 %; Immature Granulocytes Absolute 0.21 #; Lymphocytes % 8.5 % (21.3-54.2); Mean Corpuscular HGB Conc 31.3 GM/DL (32-36); Mean Platelet Volume 9.1 FL (9.6-12.0); Monocytes # 1.4 10*3/uL (0.11-0.8); Monocytes % 5.7 % (1.7-12.7); Neutrophils % 82.9 % (38.7-73.9); Platelet Count 382 T/CUMM (130-400); Red Blood Count 3.64 MC/CUMM (3.8-5.5); Red Cell Distribution Width 15.4 % (9.3-17.3); White Blood Count 23.7 T/CUMM (4-12)
[2022-05-26 06:50] LABS: Calcium 8.4 MG/DL (8.5-10.1); Potassium 3.7 MMOL/L (3.5-5.1)
[2022-05-26 07:12] LABS: Eosinophils 4 % (0-10); Lymphocytes 7 % (20-55); Platelet Estimate Adequate; Total Cells Counted 100
[2022-05-26] MEDS ORDERED: ALBUTEROL 2.5 MG/3 ML NEB RESP TX PRN (08:57)
[2022-05-26] MEDS: CLOPIDOGREL 75 MG TABLET PO SCH (11:36)
[2022-05-26] MEDS: SERTRALINE 25 MG TABLET PO SCH (11:37)
[2022-05-26] MEDS: traMADol 50 MG TABLET PO SCH ×3 (11:37→21:35)
[2022-05-26] MEDS: METOPROLOL SUCCINATE XL 50 MG TABLET PO SCH (11:37)
[2022-05-26] MEDS: allopurinoL 300 MG TABLET PO SCH (11:38)
[2022-05-26] MEDS: COMBIVENT INH SCH ×3 (13:24→21:39)
[2022-05-26] MEDS: VANCOMYCIN INJ 1,250 MG in SODIUM CHLORIDE 0.9% 250 ML IV SCH (17:19)
[2022-05-26] MEDS: ATORVASTATIN 10 MG TABLET PO SCH (21:35)
[2022-05-26] MEDS: SEREVENT INH SCH (21:38)
[2022-05-27] MEDS: MEROPENEM 500 MG in SODIUM CHLORIDE 0.9% 100 ML IV SCH ×3 (05:21→21:20)
[2022-05-27 05:26] LABS: Basophils # 0.1 10*3/uL (0.0-0.2); Basophils % 0.3 % (0.0-0.8); Eosinophils # 0.4 10*3/uL (0.0-0.87); Eosinophils % 1.8 % (0.00-10.9); Hematocrit 32.7 VOL% (35.7-47.0); Hemoglobin 10.2 GM/DL (12.0-16.0); Immature Granulocytes % 0.7 %; Immature Granulocytes Absolute 0.15 #; Lymphocytes # 1.8 10*3/uL (1.4-4.0); Lymphocytes % 7.9 % (21.3-54.2); Mean Corpuscular HGB Conc 31.2 GM/DL (32-36); Mean Corpuscular Volume 86.3 FL (87-102); Mean Platelet Volume 8.8 FL (9.6-12.0); Monocytes # 1.1 10*3/uL (0.11-0.8); Monocytes % 4.7 % (1.7-12.7); Neutrophils % 84.6 % (38.7-73.9); Platelet Count 355 T/CUMM (130-400); Red Blood Count 3.79 MC/CUMM (3.8-5.5); Red Cell Distribution Width 15.6 % (9.3-17.3); White Blood Count 22.3 T/CUMM (4-12)
[2022-05-27 05:43] LABS: Calcium 9.2 MG/DL (8.5-10.1); Osmolality,Calculated 277.3 MOS/KG (273-304); Potassium 3.6 MMOL/L (3.5-5.1)
[2022-05-27 05:48] LABS: Eosinophils 2 % (0-10); Lymphocytes 7 % (20-55); Platelet Estimate Adequate; Total Cells Counted 100
[2022-05-27] MEDS: LEVOTHYROXINE 100 MCG TABLET PO SCH (05:52)
[2022-05-27] MEDS: PANTOPRAZOLE 40 MG TABLET PO SCH (05:52)
[2022-05-27] MEDS: VANCOMYCIN INJ 1,250 MG in SODIUM CHLORIDE 0.9% 250 ML IV SCH (09:36)
[2022-05-27] MEDS: COMBIVENT INH SCH ×4 (16:16→21:13)
[2022-05-27] MEDS: traMADol 50 MG TABLET PO SCH ×2 (16:17→21:10)
[2022-05-27] MEDS: CLOPIDOGREL 75 MG TABLET PO SCH (16:17)
[2022-05-27] MEDS: METOPROLOL SUCCINATE XL 50 MG TABLET PO SCH (16:17)
[2022-05-27] MEDS: SEREVENT INH SCH ×2 (16:17→21:13)
[2022-05-27] MEDS: allopurinoL 300 MG TABLET PO SCH (16:18)
[2022-05-27] MEDS: SERTRALINE 25 MG TABLET PO SCH (16:18)
[2022-05-27] MEDS: ATORVASTATIN 10 MG TABLET PO SCH (21:09)
[2022-05-27] MEDS: SODIUM CHLOR 0.9% KCL 20 MEQ 20 MEQ/1,000 ML BAG IV SCH (21:17)
[2022-05-28] MEDS: SODIUM CHLOR 0.9% KCL 20 MEQ 20 MEQ/1,000 ML BAG IV SCH ×2 (02:17→15:51)
[2022-05-28 02:48] LABS: Basophils # 0.1 10*3/uL (0.0-0.2); Basophils % 0.3 % (0.0-0.8); Eosinophils # 0.3 10*3/uL (0.0-0.87); Eosinophils % 1.3 % (0.00-10.9); Hematocrit 30.6 VOL% (35.7-47.0); Hemoglobin 9.7 GM/DL (12.0-16.0); Immature Granulocytes % 0.8 %; Immature Granulocytes Absolute 0.16 #; Lymphocytes # 1.6 10*3/uL (1.4-4.0); Mean Corpuscular HGB Conc 31.7 GM/DL (32-36); Mean Platelet Volume 8.8 FL (9.6-12.0); Monocytes # 1.1 10*3/uL (0.11-0.8); Monocytes % 5.2 % (1.7-12.7); Neutrophils % 84.4 % (38.7-73.9); Platelet Count 359 T/CUMM (130-400); Red Cell Distribution Width 15.3 % (9.3-17.3); White Blood Count 20.1 T/CUMM (4-12)
[2022-05-28 03:07] LABS: Calcium 8.7 MG/DL (8.5-10.1); Osmolality,Calculated 278.3 MOS/KG (273-304); Potassium 3.3 MMOL/L (3.5-5.1)
[2022-05-28] MEDS: MEROPENEM 500 MG in SODIUM CHLORIDE 0.9% 100 ML IV SCH ×4 (03:17→20:33)
[2022-05-28 03:18] LABS: Lymphocytes 9 % (20-55); Platelet Estimate Adequate; Total Cells Counted 100
[2022-05-28] MEDS: VANCOMYCIN INJ 1,250 MG in SODIUM CHLORIDE 0.9% 250 ML IV SCH (04:08)
[2022-05-28] MEDS: PANTOPRAZOLE 40 MG TABLET PO SCH (05:47)
[2022-05-28] MEDS: LEVOTHYROXINE 100 MCG TABLET PO SCH (05:47)
[2022-05-28] MEDS ORDERED: POTASSIUM CHLORIDE 20 MEQ TABLET PO ONE (09:00)
[2022-05-28] MEDS: METOPROLOL SUCCINATE XL 50 MG TABLET PO SCH (10:14)
[2022-05-28] MEDS: SERTRALINE 25 MG TABLET PO SCH (10:14)
[2022-05-28] MEDS: allopurinoL 300 MG TABLET PO SCH (10:14)
[2022-05-28] MEDS: traMADol 50 MG TABLET PO SCH ×3 (10:14→20:32)
[2022-05-28] MEDS: SEREVENT INH SCH ×2 (10:24→20:35)
[2022-05-28] MEDS: CLOPIDOGREL 75 MG TABLET PO SCH ×2 (10:24→13:07)
[2022-05-28] MEDS: COMBIVENT INH SCH ×4 (10:25→20:34)
[2022-05-28] MEDS: ATORVASTATIN 10 MG TABLET PO SCH (20:29)
[2022-05-28] MEDS: guaiFENesin/DM ER 600-30 MG TABLET PO PRN (20:29)
[2022-05-29] MEDS: VANCOMYCIN INJ 1,250 MG in SODIUM CHLORIDE 0.9% 250 ML IV SCH ×2 (01:25→17:40)
[2022-05-29] MEDS: SODIUM CHLOR 0.9% KCL 20 MEQ 20 MEQ/1,000 ML BAG IV SCH (01:27)
[2022-05-29] MEDS: MEROPENEM 500 MG in SODIUM CHLORIDE 0.9% 100 ML IV SCH ×4 (03:18→20:55)
[2022-05-29 05:26] LABS: Basophils # 0.1 10*3/uL (0.0-0.2); Basophils % 0.4 % (0.0-0.8); Eosinophils # 0.4 10*3/uL (0.0-0.87); Hematocrit 30.1 VOL% (35.7-47.0); Hemoglobin 9.5 GM/DL (12.0-16.0); Lymphocytes # 1.8 10*3/uL (1.4-4.0); Lymphocytes % 8.8 % (21.3-54.2); Mean Corpuscular HGB Conc 31.6 GM/DL (32-36); Mean Corpuscular Volume 85.5 FL (87-102); Monocytes # 1.1 10*3/uL (0.11-0.8); Monocytes % 5.4 % (1.7-12.7); Neutrophils % 82.4 % (38.7-73.9); Platelet Count 339 T/CUMM (130-400); Red Blood Count 3.52 MC/CUMM (3.8-5.5); Red Cell Distribution Width 15.4 % (9.3-17.3); White Blood Count 20.7 T/CUMM (4-12)
[2022-05-29 05:49] LABS: Calcium 8.4 MG/DL (8.5-10.1); Osmolality,Calculated 273.7 MOS/KG (273-304); Potassium 3.6 MMOL/L (3.5-5.1)
[2022-05-29 05:52] LABS: Eosinophils 2 % (0-10); Lymphocytes 8 % (20-55); Platelet Estimate Adequate; Total Cells Counted 100
[2022-05-29] MEDS: PANTOPRAZOLE 40 MG TABLET PO SCH (05:54)
[2022-05-29] MEDS: LEVOTHYROXINE 100 MCG TABLET PO SCH (05:54)
[2022-05-29] MEDS ORDERED: LACTATED RINGERS 1,000 ML IV SCH (08:00)
[2022-05-29] MEDS: METOPROLOL SUCCINATE XL 50 MG TABLET PO SCH (08:32)
[2022-05-29] MEDS: allopurinoL 300 MG TABLET PO SCH (08:32)
[2022-05-29] MEDS: SERTRALINE 25 MG TABLET PO SCH (08:33)
[2022-05-29] MEDS: traMADol 50 MG TABLET PO SCH ×3 (08:33→20:47)
[2022-05-29] MEDS: COMBIVENT INH SCH ×4 (08:35→20:53)
[2022-05-29] MEDS: SEREVENT INH SCH ×2 (08:35→20:54)
[2022-05-29] MEDS ORDERED: diphenhydrAMINE 2% CREAM 28 GM TUBE TOP PRN (11:59)
[2022-05-29] MEDS: ATORVASTATIN 10 MG TABLET PO SCH (20:47)
[2022-05-29] MEDS: guaiFENesin/DM ER 600-30 MG TABLET PO PRN (22:49)
[2022-05-30] MEDS: SODIUM CHLOR 0.9% KCL 20 MEQ 20 MEQ/1,000 ML BAG IV SCH ×2 (02:04→23:40)
[2022-05-30] MEDS: ONDANSETRON 4 MG/2 ML VIAL IV PRN ×2 (02:43→23:42)
[2022-05-30] MEDS: MEROPENEM 500 MG in SODIUM CHLORIDE 0.9% 100 ML IV SCH ×4 (03:56→21:20)
[2022-05-30 05:51] LABS: Basophils # 0.1 10*3/uL (0.0-0.2); Basophils % 0.4 % (0.0-0.8); Eosinophils # 0.4 10*3/uL (0.0-0.87); Eosinophils % 1.6 % (0.00-10.9); Hematocrit 30.1 VOL% (35.7-47.0); Hemoglobin 9.4 GM/DL (12.0-16.0); Immature Granulocytes % 1.2 %; Immature Granulocytes Absolute 0.28 #; Lymphocytes # 1.3 10*3/uL (1.4-4.0); Lymphocytes % 5.4 % (21.3-54.2); Mean Corpuscular HGB Conc 31.2 GM/DL (32-36); Mean Corpuscular Volume 86.7 FL (87-102); Mean Platelet Volume 9.2 FL (9.6-12.0); Monocytes # 1.3 10*3/uL (0.11-0.8); Monocytes % 5.3 % (1.7-12.7); Neutrophils % 86.1 % (38.7-73.9); Platelet Count 351 T/CUMM (130-400); Red Blood Count 3.47 MC/CUMM (3.8-5.5); Red Cell Distribution Width 15.3 % (9.3-17.3); White Blood Count 23.7 T/CUMM (4-12)
[2022-05-30 06:03] LABS: Calcium 8.3 MG/DL (8.5-10.1); Osmolality,Calculated 270.8 MOS/KG (273-304); Potassium 3.8 MMOL/L (3.5-5.1)
[2022-05-30 06:21] LABS: Eosinophils 2 % (0-10); Hypochromia Slight; Lymphocytes 2 % (20-55); Platelet Estimate Adequate; Total Cells Counted 100
[2022-05-30 06:22] LABS: Microcytosis Slight
[2022-05-30] MEDS: LEVOTHYROXINE 100 MCG TABLET PO SCH (07:13)
[2022-05-30] MEDS: PANTOPRAZOLE 40 MG TABLET PO SCH (07:13)
[2022-05-30] MEDS ORDERED: LACTATED RINGERS 1,000 ML IV SCH (08:00)
[2022-05-30] MEDS ORDERED: LIDOCAINE 2% 5 ML VIAL ONE (09:40)
[2022-05-30] MEDS ORDERED: ETOMIDATE 20 MG/10 ML VIAL IV ONE (09:40)
[2022-05-30] MEDS ORDERED: propofoL 200 MG/20 ML VIAL IV ONE (09:52)
[2022-05-30] MEDS ORDERED: MAGNESIUM SULF RIDER 2 GM/50 ML PREMIX IV ONE (11:00)
[2022-05-30] MEDS: SERTRALINE 25 MG TABLET PO SCH (11:21)
[2022-05-30] MEDS: METOPROLOL SUCCINATE XL 50 MG TABLET PO SCH (11:21)
[2022-05-30] MEDS: allopurinoL 300 MG TABLET PO SCH (11:21)
[2022-05-30] MEDS: VANCOMYCIN INJ 1,250 MG in SODIUM CHLORIDE 0.9% 250 ML IV SCH (11:51)
[2022-05-30] MEDS: COMBIVENT INH SCH ×4 (12:40→21:38)
[2022-05-30] MEDS: SEREVENT INH SCH ×2 (12:41→21:37)
[2022-05-30 13:12] LABS: INR 1.1; PT Patient Result 12.4 SECS (10.1-12.1)
[2022-05-30] MEDS: metroNIDAZOLE INJ 500 MG/100 ML PREMIX IV SCH ×2 (14:16→22:16)
[2022-05-30] MEDS: guaiFENesin/DM ER 600-30 MG TABLET PO PRN ×2 (16:36→21:22)
[2022-05-30] MEDS: guaiFENesin 200 MG/10 ML UDCUP PO PRN ×2 (17:20→22:20)
[2022-05-30] MEDS: ATORVASTATIN 10 MG TABLET PO SCH (21:22)
[2022-05-31] MEDS ORDERED: KETOROLAC 30 MG/1 ML VIAL IV ONE (01:45)
[2022-05-31] MEDS: MEROPENEM 500 MG in SODIUM CHLORIDE 0.9% 100 ML IV SCH ×4 (02:42→21:07)
[2022-05-31] MEDS: VANCOMYCIN INJ 1,250 MG in SODIUM CHLORIDE 0.9% 250 ML IV SCH ×2 (03:19→23:06)
[2022-05-31 05:15] LABS: Basophils # 0.1 10*3/uL (0.0-0.2); Basophils % 0.3 % (0.0-0.8); Eosinophils # 0.1 10*3/uL (0.0-0.87); Eosinophils % 0.5 % (0.00-10.9); Hematocrit 27.6 VOL% (35.7-47.0); Hemoglobin 8.8 GM/DL (12.0-16.0); Immature Granulocytes % 1.2 %; Immature Granulocytes Absolute 0.29 #; Lymphocytes # 1.5 10*3/uL (1.4-4.0); Lymphocytes % 6.3 % (21.3-54.2); Mean Corpuscular HGB Conc 31.9 GM/DL (32-36); Mean Platelet Volume 8.9 FL (9.6-12.0); Monocytes # 1.3 10*3/uL (0.11-0.8); Monocytes % 5.5 % (1.7-12.7); Neutrophils % 86.2 % (38.7-73.9); Platelet Count 313 T/CUMM (130-400); Red Blood Count 3.21 MC/CUMM (3.8-5.5); Red Cell Distribution Width 15.1 % (9.3-17.3); White Blood Count 24.4 T/CUMM (4-12)
[2022-05-31] MEDS: metroNIDAZOLE INJ 500 MG/100 ML PREMIX IV SCH ×3 (05:15→21:08)
[2022-05-31 05:31] LABS: Calcium 7.8 MG/DL (8.5-10.1); Osmolality,Calculated 274.7 MOS/KG (273-304); Potassium 3.7 MMOL/L (3.5-5.1)
[2022-05-31 05:43] LABS: Hypochromia Slight; Lymphocytes 7 % (20-55); Total Cells Counted 100
[2022-05-31 05:44] LABS: Microcytosis Slight
[2022-05-31] MEDS: PANTOPRAZOLE 40 MG TABLET PO SCH (07:29)
[2022-05-31] MEDS: LEVOTHYROXINE 100 MCG TABLET PO SCH (07:29)
[2022-05-31] MEDS: SODIUM CHLOR 0.9% KCL 20 MEQ 20 MEQ/1,000 ML BAG IV SCH ×3 (10:00→17:05)
[2022-05-31] MEDS: allopurinoL 300 MG TABLET PO SCH (10:50)
[2022-05-31] MEDS: SERTRALINE 25 MG TABLET PO SCH (10:50)
[2022-05-31] MEDS: METOPROLOL SUCCINATE XL 50 MG TABLET PO SCH (10:51)
[2022-05-31] MEDS: COMBIVENT INH SCH ×4 (11:13→17:11)
[2022-05-31] MEDS: SEREVENT INH SCH ×2 (11:13→21:16)
[2022-05-31] MEDS ORDERED: ALUMINUM/MAGNES/SIMETH MAX STR 30 ML UDCUP PO PRN (12:58)
[2022-05-31] MEDS: HYDROcodone/HOMATROPINE 5 ML UDCUP PO SCH ×2 (15:22→21:06)
[2022-05-31] MEDS: OMEPRAZOLE ODT 20 MG TABLET PO SCH (18:44)
[2022-05-31] MEDS: ATORVASTATIN 10 MG TABLET PO SCH (21:06)
[2022-05-31] MEDS: traZODone 50 MG TABLET PO SCH (21:06)
[2022-06-01] MEDS: MEROPENEM 500 MG in SODIUM CHLORIDE 0.9% 100 ML IV SCH ×4 (03:10→20:50)
[2022-06-01] MEDS: metroNIDAZOLE INJ 500 MG/100 ML PREMIX IV SCH ×3 (04:42→20:50)
[2022-06-01 05:57] LABS: Basophils # 0.1 10*3/uL (0.0-0.2); Basophils % 0.4 % (0.0-0.8); Eosinophils # 0.4 10*3/uL (0.0-0.87); Eosinophils % 2.1 % (0.00-10.9); Hematocrit 28.5 VOL% (35.7-47.0); Immature Granulocytes % 0.8 %; Immature Granulocytes Absolute 0.14 #; Lymphocytes # 1.2 10*3/uL (1.4-4.0); Lymphocytes % 6.4 % (21.3-54.2); Mean Corpuscular HGB Conc 31.6 GM/DL (32-36); Mean Corpuscular Volume 85.8 FL (87-102); Mean Platelet Volume 8.9 FL (9.6-12.0); Monocytes # 1.1 10*3/uL (0.11-0.8); Monocytes % 5.7 % (1.7-12.7); Neutrophils % 84.6 % (38.7-73.9); Platelet Count 306 T/CUMM (130-400); Red Blood Count 3.32 MC/CUMM (3.8-5.5); Red Cell Distribution Width 15.2 % (9.3-17.3); White Blood Count 18.4 T/CUMM (4-12)
[2022-06-01] MEDS: OMEPRAZOLE ODT 20 MG TABLET PO SCH ×2 (06:25→18:18)
[2022-06-01 06:26] LABS: Calcium 8.3 MG/DL (8.5-10.1); Osmolality,Calculated 273.7 MOS/KG (273-304); Potassium 3.1 MMOL/L (3.5-5.1)
[2022-06-01] MEDS: LEVOTHYROXINE 100 MCG TABLET PO SCH (06:26)
[2022-06-01] MEDS ORDERED: OMEPRAZOLE ODT 20 MG TABLET PO SCH (06:30)
[2022-06-01] MEDS: POTASSIUM CHLORIDE 20 MEQ TABLET PO SCH ×2 (10:14→11:54)
[2022-06-01] MEDS: SEREVENT INH SCH ×2 (10:15→20:50)
[2022-06-01] MEDS: SERTRALINE 25 MG TABLET PO SCH (10:15)
[2022-06-01] MEDS: HYDROcodone/HOMATROPINE 5 ML UDCUP PO SCH ×3 (10:15→20:50)
[2022-06-01] MEDS: allopurinoL 300 MG TABLET PO SCH (10:15)
[2022-06-01] MEDS: METOPROLOL SUCCINATE XL 50 MG TABLET PO SCH (10:15)
[2022-06-01] MEDS: guaiFENesin 200 MG/10 ML UDCUP PO PRN (18:29)
[2022-06-01] MEDS: guaiFENesin/DM ER 600-30 MG TABLET PO PRN (18:29)
[2022-06-01] MEDS: ATORVASTATIN 10 MG TABLET PO SCH (20:50)
[2022-06-01] MEDS: traZODone 50 MG TABLET PO SCH (20:50)
[2022-06-01] MEDS: traMADol 50 MG TABLET PO PRN (23:24)
[2022-06-02] MEDS: MEROPENEM 500 MG in SODIUM CHLORIDE 0.9% 100 ML IV SCH ×4 (04:00→20:40)
[2022-06-02] MEDS: metroNIDAZOLE INJ 500 MG/100 ML PREMIX IV SCH ×3 (04:40→21:10)
[2022-06-02 06:11] LABS: Basophils # 0.1 10*3/uL (0.0-0.2); Basophils % 0.4 % (0.0-0.8); Eosinophils # 0.3 10*3/uL (0.0-0.87); Eosinophils % 1.3 % (0.00-10.9); Hematocrit 30.8 VOL% (35.7-47.0); Hemoglobin 9.8 GM/DL (12.0-16.0); Immature Granulocytes % 0.8 %; Immature Granulocytes Absolute 0.21 #; Lymphocytes # 1.9 10*3/uL (1.4-4.0); Lymphocytes % 7.6 % (21.3-54.2); Mean Corpuscular HGB Conc 31.8 GM/DL (32-36); Mean Corpuscular Volume 85.6 FL (87-102); Mean Platelet Volume 9.2 FL (9.6-12.0); Monocytes # 1.4 10*3/uL (0.11-0.8); Monocytes % 5.6 % (1.7-12.7); Neutrophils % 84.3 % (38.7-73.9); Platelet Count 358 T/CUMM (130-400); Red Cell Distribution Width 15.3 % (9.3-17.3); White Blood Count 25.3 T/CUMM (4-12)
[2022-06-02] MEDS: OMEPRAZOLE ODT 20 MG TABLET PO SCH ×2 (06:13→17:41)
[2022-06-02] MEDS: LEVOTHYROXINE 100 MCG TABLET PO SCH (06:13)
[2022-06-02 06:19] LABS: Calcium 8.4 MG/DL (8.5-10.1); Osmolality,Calculated 272.7 MOS/KG (273-304); Potassium 3.3 MMOL/L (3.5-5.1)
[2022-06-02 06:54] LABS: Eosinophils 1 % (0-10); Lymphocytes 6 % (20-55); Total Cells Counted 100
[2022-06-02 06:55] LABS: Platelet Estimate Normal
[2022-06-02] MEDS: SERTRALINE 25 MG TABLET PO SCH (09:28)
[2022-06-02] MEDS: allopurinoL 300 MG TABLET PO SCH (09:28)
[2022-06-02] MEDS: METOPROLOL SUCCINATE XL 50 MG TABLET PO SCH (09:28)
[2022-06-02] MEDS: POTASSIUM CHLORIDE 20 MEQ TABLET PO SCH (09:28)
[2022-06-02] MEDS: SEREVENT INH SCH ×2 (09:28→20:40)
[2022-06-02] MEDS: HYDROcodone/HOMATROPINE 5 ML UDCUP PO SCH ×3 (09:28→20:40)
[2022-06-02] MEDS: FAMOTIDINE 20 MG TABLET PO SCH ×2 (10:36→20:40)
[2022-06-02] MEDS: ALUMINUM/MAGNES/SIMETH MAX STR 30 ML UDCUP PO SCH ×3 (12:43→20:40)
[2022-06-02] MEDS: ATORVASTATIN 10 MG TABLET PO SCH (20:40)
[2022-06-02] MEDS: traZODone 50 MG TABLET PO SCH (20:40)
[2022-06-03] MEDS: ACETAMINOPHEN 325 MG TABLET PO PRN (04:45)
[2022-06-03] MEDS: guaiFENesin 200 MG/10 ML UDCUP PO PRN ×2 (04:45→15:35)
[2022-06-03] MEDS: metroNIDAZOLE INJ 500 MG/100 ML PREMIX IV SCH ×3 (04:50→20:35)
[2022-06-03 05:07] LABS: Basophils # 0.1 10*3/uL (0.0-0.2); Basophils % 0.4 % (0.0-0.8); Eosinophils # 0.2 10*3/uL (0.0-0.87); Eosinophils % 0.6 % (0.00-10.9); Hematocrit 31.9 VOL% (35.7-47.0); Hemoglobin 10.1 GM/DL (12.0-16.0); Immature Granulocytes % 1.1 %; Immature Granulocytes Absolute 0.34 #; Lymphocytes % 9.9 % (21.3-54.2); Mean Corpuscular HGB Conc 31.7 GM/DL (32-36); Monocytes # 1.8 10*3/uL (0.11-0.8); Monocytes % 5.9 % (1.7-12.7); Neutrophils % 82.1 % (38.7-73.9); Platelet Count 409 T/CUMM (130-400); Red Blood Count 3.71 MC/CUMM (3.8-5.5); Red Cell Distribution Width 15.4 % (9.3-17.3); White Blood Count 30.2 T/CUMM (4-12)
[2022-06-03 05:33] LABS: Calcium 8.5 MG/DL (8.5-10.1); Osmolality,Calculated 267.1 MOS/KG (273-304); Potassium 3.9 MMOL/L (3.5-5.1)
[2022-06-03 05:39] LABS: Band Neutrophils 2 % (0-10); Eosinophils 2 % (0-10); Hypochromia Slight; Lymphocytes 3 % (20-55); Total Cells Counted 100
[2022-06-03 05:40] LABS: Microcytosis Slight; Platelet Estimate Increased
[2022-06-03] MEDS: OMEPRAZOLE ODT 20 MG TABLET PO SCH ×2 (05:46→18:42)
[2022-06-03] MEDS: LEVOTHYROXINE 100 MCG TABLET PO SCH (05:46)
[2022-06-03] MEDS: HYDROcodone/HOMATROPINE 5 ML UDCUP PO SCH ×3 (09:54→20:35)
[2022-06-03] MEDS: METOPROLOL SUCCINATE XL 50 MG TABLET PO SCH (09:57)
[2022-06-03] MEDS: ALUMINUM/MAGNES/SIMETH MAX STR 30 ML UDCUP PO SCH ×4 (10:01→20:35)
[2022-06-03] MEDS: POTASSIUM CHLORIDE 20 MEQ TABLET PO SCH (10:01)
[2022-06-03] MEDS: allopurinoL 300 MG TABLET PO SCH (10:02)
[2022-06-03] MEDS: FAMOTIDINE 20 MG TABLET PO SCH ×2 (10:02→20:35)
[2022-06-03] MEDS: SEREVENT INH SCH ×2 (10:12→20:35)
[2022-06-03] MEDS: SERTRALINE 25 MG TABLET PO SCH (10:15)
[2022-06-03] MEDS: ATORVASTATIN 10 MG TABLET PO SCH (20:35)
[2022-06-03] MEDS: traZODone 50 MG TABLET PO SCH (20:35)
[2022-06-04] MEDS: guaiFENesin 200 MG/10 ML UDCUP PO PRN ×3 (01:25→15:37)
[2022-06-04] MEDS: metroNIDAZOLE INJ 500 MG/100 ML PREMIX IV SCH ×3 (04:25→20:59)
[2022-06-04 05:50] LABS: Basophils # 0.1 10*3/uL (0.0-0.2); Basophils % 0.3 % (0.0-0.8); Eosinophils # 0.4 10*3/uL (0.0-0.87); Eosinophils % 1.5 % (0.00-10.9); Hematocrit 28.9 VOL% (35.7-47.0); Immature Granulocytes % 1.1 %; Immature Granulocytes Absolute 0.26 #; Lymphocytes % 8.7 % (21.3-54.2); Mean Corpuscular HGB Conc 31.1 GM/DL (32-36); Mean Corpuscular Volume 86.3 FL (87-102); Monocytes # 1.3 10*3/uL (0.11-0.8); Monocytes % 5.6 % (1.7-12.7); Neutrophils % 82.8 % (38.7-73.9); Platelet Count 347 T/CUMM (130-400); Red Blood Count 3.35 MC/CUMM (3.8-5.5); Red Cell Distribution Width 15.6 % (9.3-17.3); White Blood Count 23.4 T/CUMM (4-12)
[2022-06-04] MEDS: LEVOTHYROXINE 100 MCG TABLET PO SCH (06:00)
[2022-06-04] MEDS: OMEPRAZOLE ODT 20 MG TABLET PO SCH ×2 (06:00→17:57)
[2022-06-04] MEDS: traMADol 50 MG TABLET PO PRN (06:00)
[2022-06-04 06:03] LABS: Calcium 8.3 MG/DL (8.5-10.1); Osmolality,Calculated 267.1 MOS/KG (273-304)
[2022-06-04 06:13] LABS: Band Neutrophils 1 % (0-10); Eosinophils 1 % (0-10); Lymphocytes 6 % (20-55); Microcytosis Slight; Total Cells Counted 100
[2022-06-04 06:14] LABS: Hypochromia Slight; Target Cells Slight
[2022-06-04] MEDS: HYDROcodone/HOMATROPINE 5 ML UDCUP PO SCH ×4 (08:25→20:59)
[2022-06-04] MEDS: guaiFENesin/DM ER 600-30 MG TABLET PO PRN (08:25)
[2022-06-04] MEDS: SERTRALINE 25 MG TABLET PO SCH (08:26)
[2022-06-04] MEDS: METOPROLOL SUCCINATE XL 50 MG TABLET PO SCH (08:26)
[2022-06-04] MEDS: POTASSIUM CHLORIDE 20 MEQ TABLET PO SCH (08:27)
[2022-06-04] MEDS: ALUMINUM/MAGNES/SIMETH MAX STR 30 ML UDCUP PO SCH ×4 (08:27→20:59)
[2022-06-04] MEDS: FAMOTIDINE 20 MG TABLET PO SCH ×2 (08:27→20:59)
[2022-06-04] MEDS: allopurinoL 300 MG TABLET PO SCH (08:27)
[2022-06-04] MEDS: SEREVENT INH SCH ×2 (15:36→21:00)
[2022-06-04] MEDS: traZODone 50 MG TABLET PO SCH (20:59)
[2022-06-04] MEDS: ATORVASTATIN 10 MG TABLET PO SCH (20:59)
[2022-06-05 05:00] LABS: Basophils # 0.1 10*3/uL (0.0-0.2); Basophils % 0.3 % (0.0-0.8); Eosinophils # 0.3 10*3/uL (0.0-0.87); Eosinophils % 1.1 % (0.00-10.9); Hemoglobin 8.9 GM/DL (12.0-16.0); Immature Granulocytes Absolute 0.23 #; Lymphocytes # 1.9 10*3/uL (1.4-4.0); Lymphocytes % 8.4 % (21.3-54.2); Mean Corpuscular HGB Conc 31.8 GM/DL (32-36); Mean Corpuscular Volume 84.6 FL (87-102); Mean Platelet Volume 9.1 FL (9.6-12.0); Monocytes # 1.5 10*3/uL (0.11-0.8); Monocytes % 6.7 % (1.7-12.7); Neutrophils % 82.5 % (38.7-73.9); Platelet Count 329 T/CUMM (130-400); Red Blood Count 3.31 MC/CUMM (3.8-5.5); Red Cell Distribution Width 15.4 % (9.3-17.3)
[2022-06-05 05:26] LABS: Eosinophils 2 % (0-10); Lymphocytes 3 % (20-55); Total Cells Counted 100
[2022-06-05 05:27] LABS: Calcium 8.1 MG/DL (8.5-10.1); Hypochromia Slight; Microcytosis Slight; Osmolality,Calculated 266.2 MOS/KG (273-304); Platelet Estimate Adequate; Potassium 3.8 MMOL/L (3.5-5.1)
[2022-06-05] MEDS: metroNIDAZOLE INJ 500 MG/100 ML PREMIX IV SCH ×3 (05:37→21:43)
[2022-06-05] MEDS: LEVOTHYROXINE 100 MCG TABLET PO SCH (05:38)
[2022-06-05] MEDS: OMEPRAZOLE ODT 20 MG TABLET PO SCH ×2 (05:38→17:30)
[2022-06-05] MEDS: SERTRALINE 25 MG TABLET PO SCH (08:56)
[2022-06-05] MEDS: METOPROLOL SUCCINATE XL 50 MG TABLET PO SCH (08:56)
[2022-06-05] MEDS: FAMOTIDINE 20 MG TABLET PO SCH ×2 (08:56→21:43)
[2022-06-05] MEDS: HYDROcodone/HOMATROPINE 5 ML UDCUP PO SCH ×3 (08:57→21:43)
[2022-06-05] MEDS: allopurinoL 300 MG TABLET PO SCH (08:57)
[2022-06-05] MEDS: ALUMINUM/MAGNES/SIMETH MAX STR 30 ML UDCUP PO SCH ×4 (08:57→21:42)
[2022-06-05] MEDS: POTASSIUM CHLORIDE 20 MEQ TABLET PO SCH (08:57)
[2022-06-05] MEDS: SEREVENT INH SCH ×2 (12:28→21:57)
[2022-06-05] MEDS: guaiFENesin 200 MG/10 ML UDCUP PO PRN (19:46)
[2022-06-05] MEDS: traZODone 50 MG TABLET PO SCH (21:43)
[2022-06-05] MEDS: ATORVASTATIN 10 MG TABLET PO SCH (21:43)
[2022-06-06] MEDS: guaiFENesin 200 MG/10 ML UDCUP PO PRN ×2 (03:13→08:18)
[2022-06-06] MEDS: metroNIDAZOLE INJ 500 MG/100 ML PREMIX IV SCH ×3 (05:27→20:57)
[2022-06-06] MEDS: LEVOTHYROXINE 100 MCG TABLET PO SCH (05:36)
[2022-06-06] MEDS: OMEPRAZOLE ODT 20 MG TABLET PO SCH ×2 (05:36→17:32)
[2022-06-06] MEDS: POTASSIUM CHLORIDE 20 MEQ TABLET PO SCH (08:17)
[2022-06-06] MEDS: allopurinoL 300 MG TABLET PO SCH (08:18)
[2022-06-06] MEDS: guaiFENesin/DM ER 600-30 MG TABLET PO PRN (08:18)
[2022-06-06] MEDS: SERTRALINE 25 MG TABLET PO SCH (08:18)
[2022-06-06] MEDS: METOPROLOL SUCCINATE XL 50 MG TABLET PO SCH (08:18)
[2022-06-06] MEDS: FAMOTIDINE 20 MG TABLET PO SCH ×2 (08:18→20:52)
[2022-06-06] MEDS: ALUMINUM/MAGNES/SIMETH MAX STR 30 ML UDCUP PO SCH ×4 (08:19→20:55)
[2022-06-06] MEDS: HYDROcodone/HOMATROPINE 5 ML UDCUP PO SCH (08:19)
[2022-06-06] MEDS: SEREVENT INH SCH ×2 (08:19→21:17)
[2022-06-06] MEDS ORDERED: BENZONATATE 100 MG CAPSULE PO PRN (08:43)
[2022-06-06 09:10] LABS: Basophils # 0.1 10*3/uL (0.0-0.2); Basophils % 0.3 % (0.0-0.8); Eosinophils # 0.1 10*3/uL (0.0-0.87); Eosinophils % 0.3 % (0.00-10.9); Hematocrit 28.9 VOL% (35.7-47.0); Hemoglobin 9.1 GM/DL (12.0-16.0); Immature Granulocytes % 2.2 %; Immature Granulocytes Absolute 0.69 #; Lymphocytes # 2.1 10*3/uL (1.4-4.0); Lymphocytes % 6.5 % (21.3-54.2); Mean Corpuscular HGB Conc 31.5 GM/DL (32-36); Mean Corpuscular Volume 85.3 FL (87-102); Mean Platelet Volume 9.4 FL (9.6-12.0); Monocytes # 1.7 10*3/uL (0.11-0.8); Monocytes % 5.4 % (1.7-12.7); Neutrophils % 85.3 % (38.7-73.9); Platelet Count 386 T/CUMM (130-400); Red Blood Count 3.39 MC/CUMM (3.8-5.5); Red Cell Distribution Width 15.7 % (9.3-17.3); White Blood Count 31.6 T/CUMM (4-12)
[2022-06-06] MEDS: ALBUTEROL 2.5 MG/3 ML NEB RESP TX SCH ×3 (09:17→20:06)
[2022-06-06 09:31] LABS: Calcium 8.2 MG/DL (8.5-10.1); Osmolality,Calculated 264.4 MOS/KG (273-304); Potassium 4.2 MMOL/L (3.5-5.1)
[2022-06-06] MEDS: BENZONATATE 100 MG CAPSULE PO SCH ×3 (09:32→20:54)
[2022-06-06 09:41] LABS: Band Neutrophils 2 % (0-10); Hypochromia Slight; Lymphocytes 4 % (20-55); Total Cells Counted 100
[2022-06-06 09:42] LABS: Acanthocytes Few; Microcytosis Slight
[2022-06-06] MEDS: ASCORBIC ACID 500 MG TABLET PO SCH ×2 (11:23→20:53)
[2022-06-06] MEDS: CHOLECALCIFEROL 1,000 UNIT TABLET PO SCH (11:23)
[2022-06-06] MEDS: ZINC GLUCONATE 50 MG TABLET PO SCH (11:23)
[2022-06-06] MEDS: DEXAMETHASONE 4 MG/1 ML VIAL IV SCH (11:24)
[2022-06-06] MEDS: CETIRIZINE 10 MG TABLET PO SCH (11:24)
[2022-06-06] MEDS ORDERED: traZODone 50 MG TABLET PO PRN (13:45)
[2022-06-06] MEDS: ATORVASTATIN 10 MG TABLET PO SCH (20:52)
[2022-06-07] MEDS: ALBUTEROL 2.5 MG/3 ML NEB RESP TX SCH ×3 (00:26→16:00)
[2022-06-07] MEDS: guaiFENesin 200 MG/10 ML UDCUP PO PRN (01:25)
[2022-06-07] MEDS: VANCOMYCIN 125 MG CAPSULE PO SCH ×4 (05:46→17:14)
[2022-06-07] MEDS: OMEPRAZOLE ODT 20 MG TABLET PO SCH ×2 (05:46→06:40)
[2022-06-07] MEDS: LEVOTHYROXINE 100 MCG TABLET PO SCH ×2 (05:47→06:40)
[2022-06-07 06:13] LABS: Basophils # 0.1 10*3/uL (0.0-0.2); Basophils % 0.2 % (0.0-0.8); Hematocrit 28.1 VOL% (35.7-47.0); Hemoglobin 8.9 GM/DL (12.0-16.0); Immature Granulocytes % 3.6 %; Lymphocytes # 1.3 10*3/uL (1.4-4.0); Mean Corpuscular HGB Conc 31.7 GM/DL (32-36); Mean Corpuscular Volume 85.7 FL (87-102); Mean Platelet Volume 9.2 FL (9.6-12.0); Monocytes # 0.6 10*3/uL (0.11-0.8); Monocytes % 1.7 % (1.7-12.7); Neutrophils % 90.5 % (38.7-73.9); Platelet Count 379 T/CUMM (130-400); Red Blood Count 3.28 MC/CUMM (3.8-5.5); Red Cell Distribution Width 15.9 % (9.3-17.3); White Blood Count 33.7 T/CUMM (4-12)
[2022-06-07 06:31] LABS: Calcium 8.3 MG/DL (8.5-10.1); Osmolality,Calculated 278.7 MOS/KG (273-304); Potassium 4.1 MMOL/L (3.5-5.1)
[2022-06-07 06:35] LABS: Ferritin 236.4 ng/mL (8-252)
[2022-06-07 06:37] LABS: Hypochromia Slight; Lymphocytes 2 % (20-55); Microcytosis Slight; Platelet Estimate Adequate; Total Cells Counted 100
[2022-06-07] MEDS: ALUMINUM/MAGNES/SIMETH MAX STR 30 ML UDCUP PO SCH ×3 (10:12→17:14)
[2022-06-07] MEDS: CHOLECALCIFEROL 1,000 UNIT TABLET PO SCH (10:13)
[2022-06-07] MEDS: ZINC GLUCONATE 50 MG TABLET PO SCH (10:13)
[2022-06-07] MEDS: BENZONATATE 100 MG CAPSULE PO SCH ×2 (10:13→14:07)
[2022-06-07] MEDS: POTASSIUM CHLORIDE 20 MEQ TABLET PO SCH (10:13)
[2022-06-07] MEDS: METOPROLOL SUCCINATE XL 50 MG TABLET PO SCH (10:14)
[2022-06-07] MEDS: FAMOTIDINE 20 MG TABLET PO SCH (10:14)
[2022-06-07] MEDS: SERTRALINE 25 MG TABLET PO SCH (10:14)
[2022-06-07] MEDS: DEXAMETHASONE 4 MG/1 ML VIAL IV SCH (10:14)
[2022-06-07] MEDS: ASCORBIC ACID 500 MG TABLET PO SCH (10:14)
[2022-06-07] MEDS: CETIRIZINE 10 MG TABLET PO SCH (10:14)
[2022-06-07] MEDS: allopurinoL 300 MG TABLET PO SCH (10:15)
[2022-06-07 12:20] VITALS: BP 134/69
[2022-06-07] MEDS: SEREVENT INH SCH (14:03)
== END 2022-06-07 17:12 | disposition swing bed (61) | DRG 193 ==
LOC: EDBD → EDUNIT# → N.ED 14:42 → N.EDINP 17:45 → SUATTDRO 17:45 → N.5E 19:30
PROVIDERS: ADMIT Hospitalist; ATTEND Internal Medicine